=== PATIENT | male | born 1945 | race Caucasian/White ===

== ENCOUNTER 2017-03-29 10:53 | Outpatient (CLI) | payer MEDICARE, BC ==
[2017-03-29 17:28] LABS: BILIRUBIN,URINE NEGATIVE (NEGATIVE); GLUCOSE, URINE (UA) NEGATIVE (NEGATIVE); KETONES,URINE (UA) NEGATIVE (NEGATIVE); LEUKOCYTE ESTERASE, URINE NEGATIVE (NEGATIVE); NITRITE,URINE NEGATIVE (NEGATIVE); OCCULT BLOOD,URINE NEGATIVE (NEGATIVE); PH,URINE 7.5 PH (5.0-7.5); PROTEIN,URINE NEGATIVE (NEGATIVE); UROBILINOGEN,URINE 0.2 (NORMAL) E.U./dL (NORMAL)
[2017-03-29 17:38] LABS: AMORPHOUS SEDIMENT,UR Moderate /LPF; BACTERIA,URINE Rare /HPF (None Seen); CLARITY,URINE CLEAR (CLEAR); MUCUS,URINE Few Strands; RBC,URINE 0-5 /HPF (0-5); SQUAMOUS EPITHELIAL CELL,UR RARE Squamous (<= Few)
== END 2017-03-29 10:54 | disposition home or self-care (01) ==
LOC: LAB.F 10:53
PROVIDERS: ATTEND Physician Assistant Medical
DX: N39.43 Post-void dribbling (principal); Z12.5 Encounter for screening for malignant neoplasm of prostate
CPT/HCPCS: 36415; 81001; G0103; 84153; 87086

== ENCOUNTER 2017-04-02 11:23 | Outpatient (CLI) | payer MEDICARE, BC ==
[2017-04-02 18:16] LABS: PSA FREE 1.429 ng/mL (0.16-2.81)
[2017-04-02 18:17] LABS: PSA TOTAL 7.573 ng/mL (0.000-2.000)
== END 2017-04-02 11:24 | disposition home or self-care (01) ==
LOC: LAB.F 11:23
PROVIDERS: ATTEND Physician Assistant Medical
DX: R97.20 Elevated prostate specific antigen [PSA] (principal)
CPT/HCPCS: 36415; 84154

== ENCOUNTER 2017-04-12 10:36 | Outpatient (CLI) | payer MEDICARE, BC ==
[2017-04-12 19:04] LABS: ALBUMIN 4.2 g/dL (3.2-5.5); ALBUMIN/GLOBULIN RATIO 1.4 (1.0-2.2); ALKALINE PHOSPHATASE 61 IU/L (42-121); ALT ALANINE AMINOTRANSFERASE 20 IU/L (10-60); AST ASPARTATE AMINOTRANSFERASE 23 IU/L (10-42); BILIRUBIN,TOTAL 0.9 mg/dL (0.2-1.0); BUN - BLOOD UREA NITROGEN 21 mg/dL (6-20); CALCIUM 9.6 mg/dL (8.5-10.3); CARBON DIOXIDE - CO2 26 mmol/L (21-32); CHLORIDE 102 mmol/L (101-111); CHOL/HDL RATIO 3.4 (<5.0); CHOLESTEROL 235 mg/dL; CREATININE 0.9 mg/dL (0.6-1.2); GFR - MDRD 83 (>89); GLUCOSE 102 mg/dL (70-100); HDL CHOLESTEROL 69 mg/dL; LDL CHOLESTEROL,CALCULATED 152 mg/dL; LDL/HDL RATIO 2.2 (<3.6); SODIUM 138 mmol/L (135-145); TOTAL PROTEIN 7.2 g/dL (6.7-8.2); VLDL CHOLESTEROL 14 mg/dL
== END 2017-04-12 10:37 | disposition home or self-care (01) ==
LOC: LAB.F 10:36
PROVIDERS: ATTEND Physician Assistant Medical
DX: R03.0 Elevated blood-pressure reading, without diagnosis of hypertension (principal); E78.5 Hyperlipidemia, unspecified
CPT/HCPCS: 36415; 80053; 80061; 83721; 84443

== ENCOUNTER 2018-11-04 09:12 | Outpatient (CLI) | payer MEDICARE, BC ==
[2018-11-04 18:14] LABS: CHOL/HDL RATIO 2.5 (<5.0); CHOLESTEROL 195 mg/dL; HDL CHOLESTEROL 77 mg/dL
== END 2018-11-04 09:13 | disposition home or self-care (01) ==
LOC: LAB.S 09:12
PROVIDERS: ATTEND Physician Assistant Medical
DX: E78.00 Pure hypercholesterolemia, unspecified (principal); Z12.5 Encounter for screening for malignant neoplasm of prostate
CPT/HCPCS: 36415; 80061; G0103; 83721; 84153

== ENCOUNTER 2019-08-08 12:13 | Outpatient (CLI) | payer MEDICARE, BC | END 2019-08-08 12:14 | disposition home or self-care (01) | LOC: LAB.S 12:13 | PROVIDERS: ATTEND Urology | DX: R97.20 Elevated prostate specific antigen [PSA] (principal) | CPT/HCPCS: 36415; 84153 ==

== ENCOUNTER 2020-02-26 08:00 | Outpatient (CLI) | payer MEDICARE, BC | END 2020-02-26 23:59 | disposition home or self-care (01) | LOC: LAB.WCP 08:00 | PROVIDERS: ATTEND Physician Assistant | DX: R42 Dizziness and giddiness (principal) ==

== ENCOUNTER 2020-02-26 15:16 | Inpatient (IN) | payer MEDICARE, BC ==
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
[2020-02-26 16:09] LABS: BASOPHILS % (AUTO) 0.6 %; EOSINOPHILS # (AUTO) 0.2 10^3/uL (0.0-0.7); EOSINOPHILS % (AUTO) 4.5 %; HGB - HEMOGLOBIN 15.2 g/dL (14.0-18.0); LYMPHOCYTES # (AUTO) 1.7 10^3/uL (1.5-3.5); LYMPHOCYTES % (AUTO) 34.4 %; MEAN CORPUSCULAR HEMOGLOBIN 32.8 pg (27.0-31.0); MEAN CORPUSCULAR HGB CONC 34.2 g/dL (32.0-36.0); MEAN CORPUSCULAR VOLUME 95.7 fL (80.0-94.0); MEAN PLATELET VOLUME 10.2 fL (7.4-11.4); MONOCYTES # (AUTO) 0.4 10^3/uL (0.0-1.0); MONOCYTES % (AUTO) 7.6 %; NEUTROPHILS # (AUTO) 2.6 10^3/uL (1.5-6.6); NEUTROPHILS % (AUTO) 52.7 %; PLT - PLATELET COUNT 158 10^3/uL (130-450); RED BLOOD COUNT 4.64 10^6/uL (4.70-6.10); RED CELL DISTRIBUTION WIDTH 13.2 % (12.0-15.0); WHITE BLOOD COUNT 4.9 x10^3/uL (4.8-10.8)
--- NOTE | 2020-02-26 16:20 | XRAY Report ---
PROCEDURE: Chest 1 View X-Ray INDICATIONS: Chest pain TECHNIQUE: One view of the chest was acquired. COMPARISON: None FINDINGS: Surgical changes and devices: None. Lungs and pleura: No pleural effusions or pneumothorax. Lungs are clear. Mediastinum: Mediastinal contours appear normal. Heart size is normal. Bones and chest wall: No suspicious bony lesions. Overlying soft tissues appear unremarkable. IMPRESSION: No acute cardiopulmonary pathology. Reviewed by: Prabahkar Carlos MD on 02/26/2020 4:19 PM [facility] Approved by: Prabhakar Carlos MD on 02/26/2020 4:19 PM PST Station ID: [id number]
[2020-02-26 16:21] LABS: ALBUMIN 4.5 g/dL (3.2-5.5); ALBUMIN/GLOBULIN RATIO 1.3 (1.0-2.2); BILIRUBIN,TOTAL 0.8 mg/dL (0.2-1.0); CALCIUM 9.9 mg/dL (8.5-10.3); CREATININE 0.7 mg/dL (0.6-1.2)
[2020-02-26] MEDS ORDERED: ONDANSETRON 4 MG/2 ML VIAL IVP PRN (17:16)
[2020-02-26] MEDS ORDERED: SODIUM CHLORIDE FLUSH 0.9% 10 ML SYRINGE IVP PRN (17:16)
[2020-02-26 17:39] LABS: INR 1.1 (0.8-1.2); PT - PROTHROMBIN TIME 11.8 secs (9.9-12.6)
[2020-02-26] MEDS ORDERED: D5NS W/20 MEQ KCL 1,000 ML IV SCH (18:00)
--- NOTE | 2020-02-26 18:09 | PHARMACY PROGRESS NOTE ---
- Best Possible Medication History Admit Date and Time: 02/26/20 1716 Processed by: Pharmacy Medication History completed: Yes Patient Interview: Completed Secondary Source(s): Insurance records As the person ultimately responsible for medication therapy, providers are able to order a medication from an existing home medication list in [facility] via the "Reconcile Routine" prior to Confirmation of that medication by logistics support. Such practice is discouraged except when the physician, in their clinical judgment, deems that a medical need exists for a medication without regard to previous use.
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
[2020-02-26] MEDS: SODIUM CHLORIDE FLUSH 0.9% 10 ML SYRINGE IVP SCH (20:01)
[2020-02-26 20:35] LABS: C. PNEUMONIAE- RESP PCR PANEL NOT DETECTED
[2020-02-26] MEDS ORDERED: FAMOTIDINE 20 MG TABLET PO SCH (21:00)
[2020-02-27 04:18] LABS: BASOPHILS % (AUTO) 0.6 %; EOSINOPHILS # (AUTO) 0.3 10^3/uL (0.0-0.7); EOSINOPHILS % (AUTO) 4.9 %; HGB - HEMOGLOBIN 13.7 g/dL (14.0-18.0); LYMPHOCYTES # (AUTO) 1.9 10^3/uL (1.5-3.5); LYMPHOCYTES % (AUTO) 36.3 %; MEAN CORPUSCULAR HEMOGLOBIN 32.5 pg (27.0-31.0); MEAN CORPUSCULAR VOLUME 95.5 fL (80.0-94.0); MEAN PLATELET VOLUME 10.4 fL (7.4-11.4); MONOCYTES # (AUTO) 0.5 10^3/uL (0.0-1.0); MONOCYTES % (AUTO) 9.7 %; NEUTROPHILS # (AUTO) 2.5 10^3/uL (1.5-6.6); NEUTROPHILS % (AUTO) 48.5 %; PLT - PLATELET COUNT 143 10^3/uL (130-450); RED BLOOD COUNT 4.22 10^6/uL (4.70-6.10); WHITE BLOOD COUNT 5.2 x10^3/uL (4.8-10.8)
[2020-02-27 04:35] LABS: CALCIUM 9.3 mg/dL (8.5-10.3); CREATININE 0.7 mg/dL (0.6-1.2); MAGNESIUM 2.2 mg/dL (1.7-2.8); PHOSPHORUS 3.4 mg/dL (2.5-4.6)
[2020-02-27 04:40] LABS: CHOL/HDL RATIO 2.9 (<5.0); CHOLESTEROL 191 mg/dL; HDL CHOLESTEROL 65 mg/dL; LDL CHOLESTEROL,CALCULATED 113 mg/dL; LDL/HDL RATIO 1.7 (<3.6); VLDL CHOLESTEROL 13 mg/dL
[2020-02-27] MEDS ORDERED: ATROPINE 0.4 MG/ML VIAL IVP ONE ×4 (06:05→07:06)
[2020-02-27] MEDS ORDERED: ATROPINE ABBOJECT 1 MG/10 ML SYRINGE IVP ONE ×2 (06:14→06:34)
[2020-02-27] MEDS: SODIUM CHLORIDE FLUSH 0.9% 10 ML SYRINGE IVP SCH (08:36)
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
[2020-02-27 13:54] VITALS: BP 139/97
== END 2020-02-27 14:50 | disposition short-term general hospital (02) | DRG 310 ==
LOC: ED 15:16 → ICU 17:16
PROVIDERS: ADMIT Internal Medicine; ATTEND Internal Medicine
DX: I48.92 Unspecified atrial flutter (principal); I44.39 Other atrioventricular block; I08.3 Combined rheumatic disorders of mitral, aortic and tricuspid valves; G25.81 Restless legs syndrome; Z91.19 Patient's noncompliance with other medical treatment and regimen; R55 Syncope and collapse; Z79.899 Other long term (current) drug therapy
CPT/HCPCS: 36415; 71045; 80048; 80053; 80061; 83690; 83735; 83880; 84100; 84443; 84484; 85025; 85610; 87150; 87631; 93005; 93306; 99284; 99285; A9270; 0202U; 83721

== ENCOUNTER 2020-02-27 14:54 | Outpatient (CLI) | payer MEDICARE, BC | END 2020-02-27 14:55 | disposition short-term general hospital (02) | LOC: EMS 14:54 | PROVIDERS: ATTEND Surgery | DX: I44.39 Other atrioventricular block (principal) | CPT/HCPCS: A0425; A0426 ==

== ENCOUNTER 2020-03-08 09:40 | Outpatient (CLI) | payer MEDICARE, BC ==
[2020-03-08 14:07] LABS: BASOPHILS % (AUTO) 0.6 %; EOSINOPHILS # (AUTO) 0.3 10^3/uL (0.0-0.7); EOSINOPHILS % (AUTO) 5.3 %; LYMPHOCYTES # (AUTO) 1.6 10^3/uL (1.5-3.5); LYMPHOCYTES % (AUTO) 30.4 %; MEAN CORPUSCULAR HEMOGLOBIN 32.2 pg (27.0-31.0); MEAN CORPUSCULAR HGB CONC 34.1 g/dL (32.0-36.0); MEAN CORPUSCULAR VOLUME 94.3 fL (80.0-94.0); MEAN PLATELET VOLUME 10.9 fL (7.4-11.4); MONOCYTES # (AUTO) 0.6 10^3/uL (0.0-1.0); MONOCYTES % (AUTO) 10.7 %; NEUTROPHILS # (AUTO) 2.8 10^3/uL (1.5-6.6); NEUTROPHILS % (AUTO) 52.8 %; PLT - PLATELET COUNT 155 10^3/uL (130-450); RED BLOOD COUNT 4.35 10^6/uL (4.70-6.10); RED CELL DISTRIBUTION WIDTH 12.8 % (12.0-15.0); WHITE BLOOD COUNT 5.3 x10^3/uL (4.8-10.8)
[2020-03-08 14:24] LABS: ALBUMIN 3.8 g/dL (3.2-5.5); ALBUMIN/GLOBULIN RATIO 1.2 (1.0-2.2); ALKALINE PHOSPHATASE 73 IU/L (42-121); ALT ALANINE AMINOTRANSFERASE 26 IU/L (10-60); AST ASPARTATE AMINOTRANSFERASE 20 IU/L (10-42); BILIRUBIN,TOTAL 0.9 mg/dL (0.2-1.0); BUN - BLOOD UREA NITROGEN 19 mg/dL (6-20); CALCIUM 9.1 mg/dL (8.5-10.3); CARBON DIOXIDE - CO2 26 mmol/L (21-32); CHLORIDE 105 mmol/L (101-111); CHOL/HDL RATIO 3.5 (<5.0); CHOLESTEROL 198 mg/dL; CREATININE 0.7 mg/dL (0.6-1.2); GLUCOSE 99 mg/dL (70-100); HDL CHOLESTEROL 57 mg/dL; LDL CHOLESTEROL,CALCULATED 128 mg/dL; LDL/HDL RATIO 2.2 (<3.6); SODIUM 138 mmol/L (135-145); VLDL CHOLESTEROL 13 mg/dL
== END 2020-03-08 09:41 | disposition home or self-care (01) ==
LOC: LAB.S 09:40
PROVIDERS: ATTEND Internal Medicine
DX: R03.0 Elevated blood-pressure reading, without diagnosis of hypertension (principal); E78.5 Hyperlipidemia, unspecified; G25.81 Restless legs syndrome
CPT/HCPCS: 36415; 80053; 80061; 82728; 83721; 85025

== ENCOUNTER 2020-03-25 10:59 | Outpatient (CLI) | payer MEDICARE, BC | END 2020-03-25 11:00 | disposition critical access hospital (66) | LOC: EMS 10:59 | PROVIDERS: ATTEND Surgery | DX: R10.9 Unspecified abdominal pain (principal) | CPT/HCPCS: A0425; A0427 ==

== ENCOUNTER 2020-03-25 11:36 | Inpatient (IN) | payer MEDICARE, BC ==
[2020-03-25 12:06] LABS: BASOPHILS % (AUTO) 0.2 %; EOSINOPHILS % (AUTO) 0.2 %; HGB - HEMOGLOBIN 13.8 g/dL (14.0-18.0); LYMPHOCYTES # (AUTO) 0.8 10^3/uL (1.5-3.5); LYMPHOCYTES % (AUTO) 8.8 %; MEAN CORPUSCULAR HEMOGLOBIN 32.3 pg (27.0-31.0); MEAN CORPUSCULAR HGB CONC 34.4 g/dL (32.0-36.0); MEAN CORPUSCULAR VOLUME 93.9 fL (80.0-94.0); MEAN PLATELET VOLUME 10.6 fL (7.4-11.4); MONOCYTES # (AUTO) 0.3 10^3/uL (0.0-1.0); MONOCYTES % (AUTO) 3.4 %; NEUTROPHILS # (AUTO) 7.7 10^3/uL (1.5-6.6); NEUTROPHILS % (AUTO) 87.1 %; PLT - PLATELET COUNT 132 10^3/uL (130-450); RED BLOOD COUNT 4.27 10^6/uL (4.70-6.10); RED CELL DISTRIBUTION WIDTH 12.8 % (12.0-15.0); WHITE BLOOD COUNT 8.8 x10^3/uL (4.8-10.8)
[2020-03-25] MEDS ORDERED: ONDANSETRON 4 MG/2 ML VIAL IVP STA (12:16)
[2020-03-25] MEDS ORDERED: HYDROmorphone 1 MG/ML CARPUJECT IVP STA ×3 (12:16→15:16)
[2020-03-25 12:19] LABS: ALBUMIN 3.9 g/dL (3.2-5.5); ALBUMIN/GLOBULIN RATIO 1.3 (1.0-2.2); CALCIUM 9.3 mg/dL (8.5-10.3); CREATININE 0.7 mg/dL (0.6-1.2); TOTAL PROTEIN 6.8 g/dL (6.7-8.2)
--- NOTE | 2020-03-25 12:40 | ED Physician Documentation ---
PD HPI ABD PAIN - Stated complaint Stated Complaint: ABD PX - Chief complaint Chief Complaint: Abd Pain - History obtained from History obtained from: Patient - History of Present Illness Timing - onset: How many hours ago (9) Timing - duration: Hours (9) Timing - details: Abrupt onset Pain level max: 10 Pain level now: 6 Quality: Aching, Pain Location: All over / everywhere Associated symptoms: No: Fever, Hematemesis, Diarrhea, Constipation, Melena, Hematochezia, Dysuria, Hematuria - Additional information Additional information: Patient is a 75-year-old male who presents to the emergency department stating he had sudden onset of epigastric abdominal pain last night. Vomiting today. Nothing makes it better or worse. Patient denies any abdominal surgeries in the past. He states he had a colonoscopy about 20 years ago. Denies any drug use. Does not smoke. He recently had a pacemaker placed. No diarrhea. No blood in the stool. Review of Systems Ten Systems: 10 systems reviewed and negative Constitutional: denies: Fever, Chills Cardiac: denies: Chest pain / pressure Respiratory: denies: Cough GI: reports: Nausea, Vomiting. denies: Diarrhea : denies: Dysuria Skin: denies: Rash Musculoskeletal: denies: Neck pain, Back pain Neurologic: denies: Headache PD PAST MEDICAL HISTORY - Past Medical History Cardiovascular: None Respiratory: Sleep apnea Neuro: None Endocrine/Autoimmune: None GI: None : Frequency Psych: None Musculoskeletal: Other Derm: None - Past Surgical History Past Surgical History: Yes Cardiovascular: Pacemaker - Present Medications Home Medications: Ambulatory Orders Medication Instructions Recorded Confirmed Gabapentin [Neurontin] 100 - 200 mg PO QPM 02/26/20 03/25/20 Apixaban [Eliquis] 5 mg PO DAILY 03/25/20 03/25/20 Losartan Potassium 25 mg PO DAILY 03/25/20 03/25/20 Metoprolol Tartrate [Lopressor] 25 mg PO DAILY 03/25/20 03/25/20 Spironolactone [Aldactone] 25 mg PO DAILY 03/25/20 03/25/20 - Allergies Allergies/Adverse Reactions: Allergies Allergy/AdvReac Type Severity Reaction Status Date / Time diazepam [From Valium] Allergy Unknown Verified 03/25/20 11:43 Sulfa (Sulfonamide Allergy Unknown Verified 03/25/20 11:43 Antibiotics) - Social History Does the pt smoke?: No Smoking Status: Never smoker Does the pt drink ETOH?: No Does the pt have substance abuse?: No - Immunizations Immunizations are current?: Yes PD ED PE NORMAL - Vitals Vital signs reviewed: Yes - General General: Alert and oriented X 3, No acute distress - HEENT HEENT: Moist mucous membranes - Neck Neck: Supple, no meningeal sign - Cardiac Cardiac: RRR - Respiratory Respiratory: No respiratory distress, Clear bilaterally - Abdomen Abdomen: Soft, Non tender, Non distended, Other (Tender to palpation epigastric without peritoneal signs) - Back Back: No CVA TTP - Derm Derm: Warm and dry - Neuro Neuro: Alert and oriented X 3 - Psych Psych: Normal mood, Normal affect Results - Vitals Vitals: Vital Signs - 24 hr 03/25/20 03/25/20 11:46 13:49 Temperature 36.5 C Heart Rate 67 68 Respiratory 18 17 Rate Blood Pressure 135/71 H 135/62 H O2 Saturation 100 100 Oxygen O2 Source Room air - EKG (time done) 1137 Rate: Rate (enter#) (65) Rhythm: Paced - Labs Labs: Laboratory Tests 03/25/20 03/25/20 03/25/20 11:59 11:59 13:24 WBC 8.8 RBC 4.27 L Hgb 13.8 L Hct 40.1 L MCV 93.9 MCH 32.3 H MCHC 34.4 RDW 12.8 Plt Count 132 MPV 10.6 Neut # (Auto) 7.7 H Lymph # (Auto) 0.8 L [place] # (Auto) 0.3 Eos # (Auto) 0.0 Baso # (Auto) 0.0 Absolute Nucleated RBC 0.00 Nucleated RBC % 0.0 Sodium 137 Potassium 5.1 H Chloride 104 Carbon Dioxide 27 Anion Gap 6.0 BUN 25 H Creatinine 0.7 Estimated GFR (MDRD) 110 Glucose 145 H Lactic Acid 1.3 Calcium 9.3 Total Bilirubin 1.0 AST 26 ALT 28 Alkaline Phosphatase 70 Total Protein 6.8 Albumin 3.9 Globulin 2.9 Albumin/Globulin Ratio 1.3 Lipase 23 Urine Color Urine Clarity Urine pH Ur Specific [place] Urine Protein Urine Glucose (UA) Urine Ketones Urine Occult Blood Urine Nitrite Urine Bilirubin Urine Urobilinogen Ur Leukocyte Esterase Ur Microscopic Review Urine Culture Comments 03/25/20 13:27 WBC RBC Hgb Hct MCV MCH MCHC RDW Plt Count MPV Neut # (Auto) Lymph # (Auto) [place] # (Auto) Eos # (Auto) Baso # (Auto) Absolute Nucleated RBC Nucleated RBC % Sodium Potassium Chloride Carbon Dioxide Anion Gap BUN Creatinine Estimated GFR (MDRD) Glucose Lactic Acid Calcium Total Bilirubin AST ALT Alkaline Phosphatase Total Protein Albumin Globulin Albumin/Globulin Ratio Lipase Urine Color YELLOW Urine Clarity CLEAR Urine pH 6.0 Ur Specific [place] 1.010 Urine Protein NEGATIVE Urine Glucose (UA) NEGATIVE Urine Ketones TRACE Urine Occult Blood NEGATIVE Urine Nitrite NEGATIVE Urine Bilirubin NEGATIVE Urine Urobilinogen 0.2 (NORMAL) Ur Leukocyte Esterase NEGATIVE Ur Microscopic Review NOT INDICATED Urine Culture Comments NOT INDICATED - Rads (name of study) CT abdomen and pelvis Radiology: Prelim report reviewed, EMP read contemporaneously, See rad report PD MEDICAL DECISION MAKING - ED course Complexity details: reviewed results, re-evaluated patient, considered dif ferential, d/w patient, d/w web consultant ED course: 75-year-old male with a small bowel obstruction on CT scan. Pain and vomiting controlled. NG tube placed. No history of abdominal surgeries. Consulted surgery, Dr. Kelsey who will follow the patient as an inpatient. Also consulted the hospitalist, Dr. Alvarez, who accepts. This document was made in part using voice recognition software. While efforts are made to proofread this document, sound alike and grammatical errors may occur. Departure - Departure Disposition: [facility] Clinical Impression: Small bowel obstruction Condition: Stable Discharge Date/Time: 03/25/20 15:22
[2020-03-25] MEDS ORDERED: IOVERSOL 320 100 ML VIAL IVP ONE ×2 (12:42→13:15)
[2020-03-25] MEDS ORDERED: SODIUM CHLORIDE 0.9% 1,000 ML IV STA (13:03)
--- NOTE | 2020-03-25 13:34 | CT Report ---
PROCEDURE: Abdomen/Pelvis W INDICATIONS: diffuse abd pain, vomiting CONTRAST: IV CONTRAST: Optiray 320 ml: 100 PO CONTRAST: *NO PO CONTRAST TECHNIQUE: After the administration of IV contrast, 5 mm thick sections acquired from the diaphragms to the symp hysis. 5 mm thick coronal and sagittal reformats were acquired. For radiation dose reduction, the f ollowing was used: automated exposure control, adjustment of mA and/or kV according to patient size. COMPARISON: None. FINDINGS: Image quality: Excellent. ABDOMEN: Lung bases: Lung bases are clear. Heart size is enlarged, pacemaker leads are seen in the region of right atrium and right ventricle. Solid organs: Liver and spleen are normal in size and enhancement. Gallbladder is within normal wheeler its. Biliary system is non dilated. Pancreas enhances normally. No adrenal nodules. Kidneys demon strate normal size and enhancement, without hydronephrosis. Small right renal cortical cyst is seen. Peritoneum and bowel: There is small amount of ascites fluid is seen in abdomen and pelvis. No gross peritoneal free air. Fluid distended small bowel loops are noted predominantly in left side of abdome n with adjacent mesenteric fat stranding and measures up to 3 cm in diameter. Colon loops show normal caliber and wall mass. Appendix is not definitively identified. No secondary signs of acute appendic itis is seen in right lower quadrant abdomen. Nodes and vessels: No retroperitoneal or mesenteric adenopathy by size criteria. Aorta and inferior vena cava are normal in size. Miscellaneous: Small umbilical hernia is seen containing ascites fluid. PELVIS: Genitourinary: Bladder wall thickness is normal. Miscellaneous: No inguinal hernias or adenopathy. Bones: No suspicious bony lesions. No vertebral body compression fractures. IMPRESSION: 1. Finding is concerning for moderate to high-grade small bowel obstruction with with fluid distended bowel loops seen predominantly in left side of abdomen and lower abdomen/pelvis. Coronal transition is not definitively identified, likely involving small bowel loop in right lower quadrant abdomen. Th ere is small amount of ascites fluid in abdomen and pelvis. No gross free air. 2. No evidence of acute appendicitis. No abscess collection. Small umbilical hernia containing small amount of ascites fluid. 3. Right renal cyst. No renal stone or hydronephrosis. Reviewed by: Prabhakar Carlos MD on 03/25/2020 1:33 PM PST Approved by: Prabhakar Carlos MD on 03/25/2020 1:33 PM PST Station ID: [id number]
[2020-03-25] MEDS ORDERED: MORPHINE 2 MG/ML CARPUJECT IVP PRN (13:52)
[2020-03-25 13:54] LABS: BILIRUBIN,URINE NEGATIVE (NEGATIVE); GLUCOSE, URINE (UA) NEGATIVE (NEGATIVE); KETONES,URINE (UA) TRACE mg/dL (NEGATIVE); LEUKOCYTE ESTERASE, URINE NEGATIVE (NEGATIVE); NITRITE,URINE NEGATIVE (NEGATIVE); OCCULT BLOOD,URINE NEGATIVE (NEGATIVE); PROTEIN,URINE NEGATIVE (NEGATIVE); UROBILINOGEN,URINE 0.2 (NORMAL) E.U./dL (NORMAL)
[2020-03-25] MEDS ORDERED: LIDOCAINE TOPICAL 4% 50 ML BOTTLE MM STA (13:55)
[2020-03-25 13:57] LABS: CLARITY,URINE CLEAR (CLEAR)
--- NOTE | 2020-03-25 13:59 | HISTORY & PHYSICAL EXAMINATION ---
History - Past Medical History Cardiovascular: reports: None Respiratory: reports: Sleep apnea Neuro: reports: None Endocrine/Autoimmune: reports: None GI: reports: None : reports: Frequency Psych: reports: None Musculoskeletal: reports: Other Derm: reports: None - Past Surgical History Cardiovascular: reports: Pacemaker Meds/Allgy - Home Medications Home Medications: Ambulatory Orders Medication Instructions Recorded Confirmed Gabapentin [Neurontin] 100 - 200 mg PO QPM 02/26/20 03/25/20 Apixaban [Eliquis] 5 mg PO DAILY 03/25/20 03/25/20 Losartan Potassium 25 mg PO DAILY 03/25/20 03/25/20 Metoprolol Tartrate [Lopressor] 25 mg PO DAILY 03/25/20 03/25/20 Spironolactone [Aldactone] 25 mg PO DAILY 03/25/20 03/25/20 - Allergies Allergies/Adverse Reactions: Allergies Allergy/AdvReac Type Severity Reaction Status Date / Time diazepam [From Valium] Allergy Unknown Verified 03/25/20 11:43 Sulfa (Sulfonamide Allergy Unknown Verified 03/25/20 11:43 Antibiotics) Exam - Vital Signs Vital Signs: Vital Signs x48h Temp Pulse Resp BP Pulse Ox 03/25/20 13:49 68 17 135/62 H 100 03/25/20 11:46 36.5 C 67 18 135/71 H 100 Conclusion/Plan - Lab Results Fish Bones: 03/25/20 11:59 03/25/20 11:59
--- NOTE | 2020-03-25 14:50 | XRAY Report ---
PROCEDURE: Chest for Line Placement INDICATIONS: NG tube placement TECHNIQUE: One view of the chest was acquired. COMPARISON: 02/26/2020 FINDINGS: Surgical changes and devices: Dual-lead cardiac pacer is in place in the interval since prior examina tion. NG tube is noted with tip projecting over the proximal stomach and port in the distal esophagus . Lungs and pleura: No pleural effusions or pneumothorax. Lungs are clear. Mediastinum: Mediastinal contours appear normal. Heart size is normal. Bones and chest wall: No suspicious bony lesions. Overlying soft tissues appear unremarkable. IMPRESSION: NG tube across the GE junction with tip in the proximal stomach and side-port in the distal esophagus . NG tube should be advanced several centimeters. Reviewed by: Shelly Costa MD, PhD on 03/25/2020 1:48 PM [facility] Approved by: Shelly Costa MD, PhD on 03/25/2020 1:48 PM [facility] Station ID: [id number]
--- NOTE | 2020-03-25 16:09 | CONSULTATION NOTE ---
Referring Provider Name of Referring Provider:: Stan Alvarez Consult Date: 03/25/20 Chief Complaint - Chief Complaint Chief Complaint: Abdominal pain associated with nausea and vomiting History of Present Illness - Admitted From Admitted From:: ED - History Obtained From Records Reviewed: Providers notes and images History obtained from: Patient and providers Exam Limitations: None - History of Present Illness HPI Comment/Other: Patient is a 75-year-old male who presents to the emergency department stating he had sudden onset of epigastric abdominal pain last night. Vomiting today. Nothing makes it better or worse. Patient denies any abdominal surgeries in the past. He has never had a similar episode and denies any sick contacts. He states he had a colonoscopy about 20 years ago. Denies any drug use. Does not smoke. He recently had a pacemaker placed. No diarrhea. No blood in the stool. He denies any chest pain at this time. He reports he is "miserable" and cannot get comfortable. NGT was placed and is working but has not improved his discomfort. He describes the pain as "severe" and reports it is all over his abdomen but worst in the upper mid abdomen History - Past Medical History Cardiovascular: reports: None Respiratory: reports: Sleep apnea Neuro: reports: None Endocrine/Autoimmune: reports: None GI: reports: None : reports: Frequency Psych: reports: None Musculoskeletal: reports: Other Derm: reports: None - Past Surgical History General: reports: Colonoscopy (approximately 20 years ago) Cardiovascular: reports: Pacemaker Meds/Allgy - Home Medications Home Medications: Ambulatory Orders Medication Instructions Recorded Confirmed Gabapentin [Neurontin] 100 - 200 mg PO QPM 02/26/20 03/25/20 Apixaban [Eliquis] 5 mg PO DAILY 03/25/20 03/25/20 Losartan Potassium 25 mg PO DAILY 03/25/20 03/25/20 Metoprolol Tartrate [Lopressor] 25 mg PO DAILY 03/25/20 03/25/20 Spironolactone [Aldactone] 25 mg PO DAILY 03/25/20 03/25/20 - Allergies Allergies/Adverse Reactions: Allergies Allergy/AdvReac Type Severity Reaction Status Date / Time diazepam [From Valium] Allergy Unknown Verified 03/25/20 11:43 Sulfa (Sulfonamide Allergy Unknown Verified 03/25/20 11:43 Antibiotics) Review of Systems - Constitutional Constitutional: reports: Poor appetite - Eyes Eyes: denies: Pain, Irritation, Blurred vision - Ears, Nose & Throat Ears, Nose & Throat: denies: Tinnitus, Vertigo - Cardiovascular Cariovascular: denies: Irregular heart rate, Palpitations, Chest pain, Lightheadedness - Respiratory Respiratory: denies: Cough, Sputum production, Wheezing, Orthopnea - Gastrointestinal Gastrointestinal: reports: Abdominal pain, Nausea, Vomiting, Poor appetite. denies: Abdominal distention, Constipation, Diarrhea, Change in bowel habits, Rectal bleeding, Black stools, Bloody stools, Coffee grounds emesis, Reflux/heartburn, Bloating - Genitourinary Genitourinary: reports: Frequency. denies: Dysuria - Musculoskeletal Musculoskeletal: reports: Stiffness, Joint pain - Integumentary Integumentary: denies: Rash, Pruritis - Neurological Neurological: denies: General weakness, Focal weakness Exam - Vital Signs Reviewed Vital Signs: Yes Vital Signs: Vital Signs x48h Temp Pulse Pulse Resp BP BP Pulse Ox 03/25/20 15:58 36.5 C 91 18 159/63 H 95 03/25/20 14:40 36.5 C 71 19 148/91 H 100 03/25/20 13:49 68 17 135/62 H 100 03/25/20 11:46 36.5 C 67 18 135/71 H 100 - Physical Exam General Appearance: positive: Moderate distress, Anxious Eyes Bilateral: positive: Normal inspection, PERRL, EOMI, No lid inflammation, Conjunctivae nml ENT: positive: ENT inspection nml, Pharynx nml, No signs of dehydration Neck: positive: Nml inspection, Thyroid nml, No JVD Respiratory: positive: Chest non-tender, No respiratory distress, Breath sounds nml Cardiovascular: positive: Regular rate & rhythm, No murmur Peripheral Pulses: positive: 0 Abdomen: positive: Nml bowel sounds, No distention, Tenderness, Guarding, Rebound Back: negative: CVA tenderness (R), CVA tenderness (L) Skin: positive: Color nml, No rash Extremities: positive: Non-tender Neurologic/Psychiatric: positive: Oriented x3 Conclusion and Plan - Lab Results Laboratory Results 03/25/20 13:27: Urine Color YELLOW, Urine Clarity CLEAR, Urine pH 6.0, Ur Specific [place] 1.010, Urine Protein NEGATIVE, Urine Glucose (UA) NEGATIVE, Urine Ketones TRACE, Urine Occult Blood NEGATIVE, Urine Nitrite NEGATIVE, Urine Bilirubin NEGATIVE, Urine Urobilinogen 0.2 (NORMAL), Ur Leukocyte Esterase NEGATIVE, Ur Microscopic Review NOT INDICATED, Urine Culture Comments NOT INDICATED 03/25/20 13:24: Lactic Acid 1.3 03/25/20 11:59: Sodium 137, Potassium 5.1 H, Chloride 104, Carbon Dioxide 27, Anion Gap 6.0, BUN 25 H, Creatinine 0.7, Estimated GFR (MDRD) 110, Glucose 145 H, Calcium 9.3, Total Bilirubin 1.0, AST 26, ALT 28, Alkaline Phosphatase 70, Total Protein 6.8, Albumin 3.9, Globulin 2.9, Albumin/Globulin Ratio 1.3, Lipase 23 03/25/20 11:59: WBC 8.8, RBC 4.27 L, Hgb 13.8 L, Hct 40.1 L, MCV 93.9, MCH 32.3 H, MCHC 34.4, RDW 12.8, Plt Count 132, MPV 10.6, Neut # (Auto) 7.7 H, Lymph # (Auto) 0.8 L, [place] # (Auto) 0.3, Eos # (Auto) 0.0, Baso # (Auto) 0.0, Absolute Nucleated RBC 0.00, Nucleated RBC % 0.0 - Diagnosis Diagnosis: IMPRESSION: 1. Finding is concerning for moderate to high-grade small bowel obstruction with with fluid. distended bowel loops seen predominantly in left side of abdomen and lower abdomen/pelvis. Coronal. transition is not definitively identified, likely involving small bowel loop in right lower quadrant. abdomen. There is small amount of ascites fluid in abdomen and pelvis. No gross free air. 2. No evidence of acute appendicitis. No abscess collection. Small umbilical hernia containing. small amount of ascites fluid. 3. Right renal cyst. No renal stone or hydronephrosis. Reviewed by: Prabhakar Carlos MD on 03/25/2020 1:33 PM PST. Approved by: Prabhakar Carlos MD on 03/25/2020 1:33 PM PST - Plan Plan: My initial plan was to treat this conservatively with NGT decompression and wait. The patient's level of discomfort is concerning. He is unable to sit still and has not been relieved with any measures so far including narcotic pain medications. I have recommended we proceed to the OR for Laparoscopy with indicated procedures. He understands this may mean bowel resection and could require and open procedure. We have discussed the risks and benefits of the procedure and the patient has expressed his willingness to complete it.
--- NOTE | 2020-03-25 17:07 | ANESTHESIA ---
Pre-Anesthesia VS, & Labs - Diagnosis Diagnosis IMPRESSION: 1. Finding is concerning for moderate to high- grade small bowel obstruction with with fluid distended bowel loops seen predominantly in left side of abdomen and lower abdomen/pelvis. Coronal transition is not definitively identified, likely involving small bowel loop in right lower quadrant abdomen. There is small amount of ascites fluid in abdomen and pelvis. No gross free air. 2. No evidence of acute appendicitis. No abscess collection. Small umbilical hernia containing small amount of ascites fluid. 3. Right renal cyst. No renal stone or hydronephrosis. Reviewed by: Prabhakar Carlos MD on 03/25/2020 1:33 PM PST Approved by: Prabhakar Carlos MD on 03/25/2020 1:33 PM PST - Procedure Laparotomy, relief of SBO Vital Signs: Temp Pulse Resp BP Pulse Ox 36.5 C 91 8 L 159/63 H 95 03/25/20 15:58 03/25/20 15:58 03/25/20 15:58 03/25/20 15:58 03/25/20 15:58 Height: 6 ft Weight (kg): 70.307 kg Body Mass Index: 20.9 BMI Classification: Healthy weight - NPO >8 hours - Lab Results Current Lab Results: Laboratory Tests 03/25/20 13:24: Lactic Acid 1.3 03/25/20 11:59: Sodium 137, Potassium 5.1 H, Chloride 104, Carbon Dioxide 27, Anion Gap 6.0, BUN 25 H, Creatinine 0.7, Estimated GFR (MDRD) 110, Glucose 145 H , Calcium 9.3, Total Bilirubin 1.0, AST 26, ALT 28, Alkaline Phosphatase 70, Total Protein 6.8, Albumin 3.9, Globulin 2.9, Albumin/Globulin Ratio 1.3, Lipase 23 03/25/20 11:59: WBC 8.8, RBC 4.27 L, Hgb 13.8 L, Hct 40.1 L, MCV 93.9, MCH 32.3 H, MCHC 34.4, RDW 12.8, Plt Count 132, MPV 10.6, Neut # (Auto) 7.7 H, Lymph # (Auto) 0.8 L, [place] # (Auto) 0.3, Eos # (Auto) 0.0, Baso # (Auto) 0.0, Absolute Nucleated RBC 0.00, Nucleated RBC % 0.0 Fish Bones: 03/25/20 11:59 03/25/20 11:59 Home Medications and Allergies Home Medications: Ambulatory Orders Apixaban [Eliquis] 5 mg PO BID 03/25/20 Losartan Potassium 25 mg PO DAILY 03/25/20 Metoprolol Succinate [Toprol Xl] 50 mg PO DAILY 03/25/20 Spironolactone [Aldactone] 25 mg PO DAILY 03/25/20 Active Medications Hydromorphone HCl (Hydromorphone 1 Mg/Ml Carpuject) 1 mg IVP Q3HR PRN PRN Reason: PAIN >8 Sodium Chloride (Normal Saline 0.9%) 1,000 mls @ 100 mls/hr IV .Q10H GILDA Ondansetron HCl (Ondansetron 4 Mg/2 Ml Vial) 4 mg IVP Q6HR PRN PRN Reason: Nausea / Vomiting Pantoprazole Sodium (Pantoprazole 40 Mg Vial) 40 mg IVP QDAC GILDA Sodium Chloride (Sodium Chloride Flush 0.9% 10 Ml Syringe) 10 ml IVP PRN PRN PRN Reason: NEEDED PER PROVIDER ORDERS Sodium Chloride (Sodium Chloride Flush 0.9% 10 Ml Syringe) 10 ml IVP 0100,0900,1700 GILDA Gabapentin [Neurontin] 100 - 200 mg PO QPM 02/26/20 Apixaban [Eliquis] 5 mg PO BID 03/25/20 Losartan Potassium 25 mg PO DAILY 03/25/20 Metoprolol Succinate [Toprol Xl] 50 mg PO DAILY 03/25/20 Spironolactone [Aldactone] 25 mg PO DAILY 03/25/20 Allergies/Adverse Reactions: Allergies Allergy/AdvReac Type Severity Reaction Status Date / Time diazepam [From Valium] Allergy Unknown Verified 03/25/20 11:43 Sulfa (Sulfonamide Allergy Unknown Verified 03/25/20 11:43 Antibiotics) Anes History & Medical History - Anesthetic History Anesthesia Complications: reports: No previous complications - Medical History Cardiovascular: reports: None Pulmonary: reports: Sleep apnea Gastrointestinal: reports: None Urinary: reports: Frequency Neuro: reports: None Musculoskeletal: reports: Other Endocrine/Autoimmune: reports: None Blood Disorders: reports: None Skin: reports: None Smoking Status: Never smoker History of Cancer?: No - Surgical History General: Colonoscopy (approximately 20 years ago) Cardiothoracic: Pacemaker Exam General: Alert, Moderate distress (abd pain) Dental: WNL Mouth Opening: Greater than 4 Fingerbreadths Mallampati classification: II Respiratory: Lungs clear Cardiovascular: Regular rate Mental/Cognitive Status: Alert/Oriented X3 Plan Anesthesia Type: General Consent for Procedure(s) Verified and Reviewed: Yes Code Status: Attempt Resuscitation ASA classification: 2-Mild systemic disease Is this case an emergency?: Yes
[2020-03-25] MEDS ORDERED: BUPIVACAINE 0.5% PF 30 ML VIAL INFIL ONE ×2 (17:10→18:50)
[2020-03-25] MEDS ORDERED: HYDROmorphone 1 MG/ML CARPUJECT ONE (17:12)
[2020-03-25] MEDS ORDERED: LIDOCAINE 2%-EPI 1:100000 20 ML MDV ONE (17:14)
[2020-03-25] MEDS ORDERED: BUPIVACAINE 0.5% PF 30 ML VIAL ONE (17:14)
[2020-03-25] MEDS ORDERED: ROCURONIUM 50 MG/5 ML VIAL ONE ×2 (17:25→18:30)
[2020-03-25] MEDS ORDERED: LIDOCAINE-MPF 2% 5 ML VIAL ONE (17:25)
[2020-03-25] MEDS ORDERED: PROPOFOL 200 MG/20 ML VIAL IVP ONE (17:25)
[2020-03-25 17:35] LABS: C. PNEUMONIAE- RESP PCR PANEL NOT DETECTED
[2020-03-25] MEDS ORDERED: LIDOCAINE 2%-EPI 1:100000 20 ML MDV SUBQ ONE ×2 (17:38→18:50)
[2020-03-25] MEDS ORDERED: ATROPINE ABBOJECT 1 MG/10 ML SYRINGE IVP PRN (17:56)
[2020-03-25] MEDS ORDERED: PHENYLEPHRINE 10 MG/ML VIAL ONE (17:56)
[2020-03-25] MEDS ORDERED: fentaNYL 100 MCG/2 ML VIAL IVP PRN (17:56)
[2020-03-25] MEDS ORDERED: ONDANSETRON 4 MG/2 ML VIAL IVP PRN (17:56)
[2020-03-25] MEDS ORDERED: METOCLOPRAMIDE 10 MG/2 ML VIAL IVP PRN (17:56)
[2020-03-25] MEDS ORDERED: ePHEDrine 50 MG/ML VIAL IVP PRN (17:56)
[2020-03-25] MEDS ORDERED: NALOXONE 0.4 MG/ML VIAL IVP PRN (17:56)
[2020-03-25] MEDS ORDERED: HYDROmorphone 0.5 MG/0.5 ML SYRINGE IVP PRN (17:56)
[2020-03-25] MEDS ORDERED: LACTATED RINGERS 1,000 ML IV SCH (18:00)
[2020-03-25] MEDS ORDERED: metroNIDAZOLE 500 MG/100 ML 500 MG/100 ML BAG ONE (18:14)
[2020-03-25] MEDS ORDERED: SUGAMMADEX 200 MG/2 ML VIAL IVP ONE (19:27)
[2020-03-25] MEDS ORDERED: LACTATED RINGERS 100 ML IV ONE (19:43)
--- NOTE | 2020-03-25 20:14 | OPERATIVE REPORT ---
Operative Report - General Admit Date: 03/25/20 Procedure Date: 03/25/20 Planned Procedure: Laparoscopy with correction of small bowel obstruction and indicated procedures Pre-Op Diagnosis: Small bowel obstruction Procedure Performed: Laparoscopy, converted to laparotomy with small bowel resection, primary ilio ileostomy, lysis of adhesions, appendectomy and right subclavian central line placement Post Op Diagnosis: Internal hernia with frankly hemorrhagic and necrotic ileum - Procedure Note Primary Surgeon: Low Anesthesia Provider: SIN Hilliard Anesthesia Technique: General ET tube, Local, Regional block Pathology: Portion of hemorrhagic ileum to pathology in formalin IV Fluids (mL): 2,000 Estimated Blood Loss (mL): 150 Indications: Small bowel obstruction with pain out of proportion to exam Findings: Hemorrhagic and frankly necrotic proximal ileum. Internal omental hernia containing the above referenced bowel segment. Left subclavian central line in good position. Complications: None apparent. - Other Other Information/Narrative: After obtaining informed consent, the patient is brought to the operating room and placed in the supine position on the operating table. Following successful induction of general endotracheal anesthesia, appropriate padding of all bony prominences, and placement of appropriate monitors, the abdomen was prepped and draped in the standard surgical fashion. A timeout was held per scope protocol. All elements of the surgical safety checklist were followed before, during, and after the procedure. We began the procedure by infiltrating a mixture of local anesthetics inferior to the umbilicus. An incision was created here and carried down through the skin and subcutaneous tissue to reveal the fascia below. 2-0 Vicryl retention sutures were placed on either side of the midline and the abdomen was entered under direct vision using a 15 blade scalpel. A 10 mm blunt Torre balloon trocar was placed in the abdominal cavity and it was insufflated to 15 mmHg pressure. It was notable that upon entering the abdominal cavity bloody fluid was visualized including some clots. The camera was placed in the abdominal cavity and we immediately immediately visualized a large amount of bloody fluid and clots within the abdominal cavity spread throughout all portions of it we could see a Hemorrhagic mass in the Right lower quadrant. A 5 mm trocar was placed under direct vision in the right upper quadrant. This allowed manipulation of the bowel and revealed hemorrhagic and frankly necrotic small bowel.At this point I elected to conclude the laparoscopic portion of the procedure. All trochars were removed and instruments were removed from the table. We proceeded with open laparotomy.An incision was created in the midline sharply and carried through the skin and subcutaneous tissue. The fascia was opened under direct vision. A large wound protector was placed for retraction in the abdominal cavity. We immediately identified a segment of grossly hemorrhagic and necrotic bowel in the right lower quadrant this bowel was elevated into the field and bowel clamps were placed proximally and distally to the devitalized segment. A TIFFANY stapling device was used to divide this bowel and the mesentery was taken along its clearly demarcated line using the LigaSure device.Once the necrotic tissue was out we began examination and evaluation of the abdomen it became clear that there was a internal hernia involving the omentum in the right lower quadrant that was approximately 4 cm in size. The bowel had been through this rent in the omentum creating compression and ischemia. This omentum was divided using the LigaSure device. The 2 ends of the remaining bowel were examined carefully and were viable and seem to be well vascularized. The bowel was then examined from the cecum to the ligament of Treitz. The line of demarcation distally was approximately 3 feet from the ileocecal valve. There were no other areas of inflammation or ischemia. The remainder of the abdominal contents including the colon were healthy in appearance without any other masses. It is notable that there was a large volume of solid stool within the colon and fecalization of the small bowel was apparent.A primary ileoileostomy was performed in a stapled fashion and the edges oversewn with interrupted 3-0 Vicryl suture. The mesenteric defect was closed with interrupted Vicryl suture. The appendix was notably long and I elected to perform an appendectomy. The mesoappendix was divided using the LigaSure device and the appendix was liberated from its attachment to the cecum with another load of the TIFFANY stapling device. The abdomen was then checked completely for hemostasis. It was irrigated with 3 L of warm saline solution and aspirated free of all fluid and particulate matter. While we were satisfied that all was clean, there were no sources of bleeding, all anastomoses were patent, the omentum was placed carefully over the bowel and we proceeded to close the abdomen. This was done using a #1 PDS suture. The skin incisions were closed with interrupted 3-0 nylon sutures and packed in between each stitch with plain Nu Gauze.All sponge, needle, and instrument counts were correct at the conclusion of this portion of the case. The wound was dressed with dry gauze and Medipore tape. The anesthesia service continued to perform a tap block. While they did so, I went to the head of the bed and performed a right subclavian central line. This was done by prepping and draping the right chest in the standard surgical fashion.The right subclavian vein was accessed via Seldinger technique in the deltopectoral groove on the right. The wire was passed through the needle and into the subclavian vein. The needle was removed. The dilator was then passed over the Wire to dilate the tract. This was done with very little resistance. A triple-lumen catheter was then threaded over the wire and into the vein with removal of the J-wire. All ports flushed and jenae easily. The catheter was sewn into place. Chest x-ray revealed the triple- lumen catheter to be in good position in the superior vena cava.Again all sponge, needle, and instrument counts were correct at the conclusion of the case. The patient was allowed awaken from anesthesia and was taken to the intensive care unit in guarded condition.
[2020-03-25] MEDS: SODIUM CHLORIDE 0.9% 1,000 ML IV SCH (20:34)
--- NOTE | 2020-03-25 21:00 | XRAY Report ---
PROCEDURE: Chest for Line Placement INDICATIONS: central line TECHNIQUE: One view of the chest was acquired. COMPARISON: 03/25/2020. FINDINGS: Surgical changes and devices: There is a new right subclavian catheter with the tip extending to the superior vena cava. Nasogastric tube extends into the stomach with the tip not included on the curren t study. A left chest wall dual-lead pacemaker is redemonstrated. Lungs and pleura: No pleural effusions or pneumothorax. No acute consolidation. Mediastinum: Mediastinal contours appear normal. Heart size is normal. Bones and chest wall: No suspicious bony lesions. Overlying soft tissues appear unremarkable. IMPRESSION: 1. No evidence of pneumothorax. Reviewed by: Mahad Robertson MD on 03/25/2020 8:59 PM PST Approved by: Mahad Robertson MD on 03/25/2020 8:59 PM PST Station ID: [id number]
[2020-03-25] MEDS: SODIUM CHLORIDE FLUSH 0.9% 10 ML SYRINGE IVP SCH (22:15)
--- NOTE | 2020-03-25 22:15 | ANESTHESIA POST OP EVALUATION ---
Anesthesia Post Eval - Post Anesthesia Eval Vitals: Last Vital Signs Temp 36.6 C 03/25/20 20:15 Pulse 62 03/25/20 20:15 Resp 10 L 03/25/20 20:15 BP 119/97 H 03/25/20 20:15 Pulse Ox 100 03/25/20 20:15 CV Function Including HR & BP: positive: Stable Pain Control: positive: Satisfactory Nausea & Vomiting: positive: Negative Mental Status: positive: Patient Participates Respiratory Status: Airway Patent Hydration Status: Satisfactory Anesthesia Complications: positive: None
[2020-03-25] MEDS ORDERED: ROPIVACAINE 0.5% PF 20 ML AMPULE ONE (22:16)
[2020-03-25] MEDS ORDERED: PIPERACILLIN/TAZOBACTAM 3.375 GM in SODIUM CHLORIDE 0.9% MINIBAG 100 ML IV ONE (23:00)
--- NOTE | 2020-03-25 23:19 | HISTORY & PHYSICAL EXAMINATION ---
DATE OF SERVICE: 03/25/2020 Physician: Mila Tabares MD HISTORY OF PRESENT ILLNESS: This is a 75-year-old white male with a history of restless leg syndrome, sleep apnea, who cannot tolerate CPAP, chronic constipation. He was admitted here three weeks ago for syncope, found to be in new onset of atrial flutter and his workup then showed that he had intermittent 8:1 block, in atrial flutter and he required transfer to [facility] for insertion of a permanent pacemaker. The Echo done here during that admission three weeks ago showed a cardiomyopathy of undetermined type with LVEF 40%, cor pulmonale and presence of a PFO and mild pulmonary hypertension. The patient presented now with rapid onset of abdominal pain with nausea and vomiting. He presented to the emergency room where workup showed that he had no fever, normal white blood count, but CT of the abdomen and pelvis showed a high- grade small-bowel obstruction. He did not get pain relief even with Dilaudid and was fidgety and worrisome. He was seen by the surgical services assistant and deemed to be necessary to take to the operating room urgently. He is being admitted on the Hospitalist service after coming out of the operating room, where he underwent abdominal surgery by Dr. Negrita Kelsey, and the findings were that he had an omental hernia and bowel was trapped in it and was ischemic. He needed resection of a long piece of ischemic bowel, but tghe bowel was reanastomosed. He is being admitted to ICU out of the PACU. PAST MEDICAL HISTORY 1. Chronic atrial flutter. 2. Cardiomyopathy of undetermined type. 3. Cor pulmonale. 4. PFO. 5. Sleep apnea, not tolerating CPAP. 6. Restless leg syndrome. 7. Recent imlantation of a pacemaker for high-grade block when he was admitted for syncope three weeks ago. ALLERGIES 1. DIAZEPAM. 2. SULFA ANTIBIOTICS. MEDICATIONS 1. Eliquis 5 mg b.i.d. 2. Gabapentin 100 or 200 mg every night. 3. Toprol-XL 25 or 50 mg daily. 4. Spironolactone 25 mg daily. 5. Losartan 25 mg daily. FAMILY HISTORY: On both sides of the family, there is coronary artery disease and strokes. His brother had cardiac disease in his 50s and a nephew has coronary artery disease in his 40s. The patient has no natural children. SOCIAL HISTORY: He lives with his . He is retired from [employer]. He never smoked cigarettes. He drinks one glass of wine with dinner. There is no illicit drug use history. REVIEW OF SYSTEMS: There has been no fever, diarrhea, melena, hematochezia. He had a colonoscopy last done about 20 years ago. It is unclear if there was a workup for his cardiomyopathy when he was at [facility] three weeks ago for the pacemaker insertion. A comprehensive review of systems is done from chart review, and he answers questions briefly, since he is still lethargic from coming out of the OR. The pertinent positives are listed, the rest are negative. PHYSICAL EXAM GENERAL: Thin, elderly, white male. He is somnolent from coming out of anesthesia in the OR. VITAL SIGNS: Blood pressure 119/97, heart rate 62, which is intermittently demand paced. Oxygen saturation is 98% on room air. HEENT: Unremarkable, except he is thin and has male pattern baldness. NECK: No JVD at a 30-degree upright angle. CHEST: Clear anteriorly. HEART: Normal heart sounds without murmur. ABDOMEN: Has bandages and no bowel sounds. EXTREMITIES: No clubbing, cyanosis or edema. NEUROLOGIC: Currently somnolent, but prior to that, it was nonfocal. LABORATORY DATA: Sodium 137, potassium 5.1, BUN 25, creatinine 0.7. Lactic acid 1.3. Normal liver tests and lipase. White blood count 8.8, hemoglobin 13.8 with a normal MCV, platelet count normal at 132. Urinalysis unremarkable. His BioFire was negative for everything including COVID. IMAGING: Chest x-ray: No active pulmonary disease and after the OR, there is an NG tube with tip in the stomach, right CVP catheter in the SVC and no pneumothorax and a left chest pacemaker device is seen. The abdomen and pelvis CT done in the ER showed moderate to high-grade small- bowel obstruction with fluid distended bowel loops in the left side of the abdomen and lower abdomen and pelvis, and there may be small bowel loop in the right lower quadrant too. There is a small amount of ascites, but no free air. There is no evidence of acute appendicitis or abscess collection. There is a small umbilical hernia containing ascites fluid. There is also renal cyst. EKG: Atrial flutter with variable block, ventricular demand pacing is seen, his kalispel QRS complexes have a right bundle branch block and this is similar to previous. IMPRESSION/DIAGNOSES 1. Small bowel obstruction, this appears to be mechanical since the patient has never had prior abdominal surgery, and what was reported by the surgeon is that he had an omental hernia and bowel was trapped within that packet. 2. Ischemic bowel. 3. Chronic atrial flutter, he is on Eliquis. 4. Sleep apnea, not tolerating CPAP. 5. Restless leg syndrome. 6. History of pacemaker, recently placed for high-grade block when he was in 8:1 atrial flutter and this was found during his admission for recurrent syncope three weeks ago. 7. Constipation. This was reported by the surgeon, noted during hus surgery. 8. LV cardiomyopathy of undetermined type. 9. Cor pulmonale, likley from pulmonary HTMN and untreated sleep apnea. 10. Patent foramen ovale, may be primary and congenital or secondary to the Cor pulmonale. PLAN: Admit the patient to the ICU on telemetry with ICU protocols. Surgical site management per the general surgeon. Continue with NG tube for decompression and n.p.o. diet. Continue with pain medication as per surgery. Continue with IV fluids while he is n.p.o. Follow his electrolytes and replace as needed. Begin empiric iv antibiotics using Zosyn. Old records should be requested from [facility] regarding whether any workup was done of the new finding of cardiomyopathy (from the finding on Echo done here, three weeks ago). Hold po meds Eliquis, Spironolactone and Gabapentin, and use iv B-blockers instead of po. DEEP VENOUS THROMBOSIS PROPHYLAXIS: SCDs. CODE STATUS: FULL CODE. ATTESTATION: Patient is expected to be discharged or transferred to another facility within 96 hours: Yes. cc: Rob Porras MD TD: 03/25/2020 22:02 MTDD
[2020-03-26] MEDS: SODIUM CHLORIDE FLUSH 0.9% 10 ML SYRINGE IVP SCH ×4 (00:12→23:12)
[2020-03-26] MEDS: PIPERACILLIN/TAZOBACTAM 3.375 GM in SODIUM CHLORIDE 0.9% MINIBAG 100 ML IV SCH ×3 (03:02→19:03)
[2020-03-26] MEDS ORDERED: SODIUM CHLORIDE 0.9% 500 ML IV PRN (03:32)
[2020-03-26] MEDS ORDERED: SODIUM CHLORIDE FLUSH 0.9% 10 ML SYRINGE IVP PRN (03:32)
[2020-03-26] MEDS: BENZOCAINE/MENTHOL LOZENGE MM PRN ×2 (04:24→20:30)
[2020-03-26] MEDS: HYDROmorphone 1 MG/ML CARPUJECT IVP PRN ×4 (04:24→23:59)
[2020-03-26 05:03] LABS: BASOPHILS % (AUTO) 0.1 %; EOSINOPHILS % (AUTO) 0.1 %; HGB - HEMOGLOBIN 10.6 g/dL (14.0-18.0); LYMPHOCYTES # (AUTO) 0.9 10^3/uL (1.5-3.5); LYMPHOCYTES % (AUTO) 8.9 %; MEAN CORPUSCULAR HEMOGLOBIN 32.1 pg (27.0-31.0); MEAN CORPUSCULAR HGB CONC 34.1 g/dL (32.0-36.0); MEAN CORPUSCULAR VOLUME 94.2 fL (80.0-94.0); MEAN PLATELET VOLUME 10.9 fL (7.4-11.4); MONOCYTES # (AUTO) 0.8 10^3/uL (0.0-1.0); MONOCYTES % (AUTO) 7.4 %; NEUTROPHILS # (AUTO) 8.4 10^3/uL (1.5-6.6); NEUTROPHILS % (AUTO) 83.1 %; PLT - PLATELET COUNT 102 10^3/uL (130-450); RED CELL DISTRIBUTION WIDTH 13.1 % (12.0-15.0); WHITE BLOOD COUNT 10.1 x10^3/uL (4.8-10.8)
[2020-03-26 05:13] LABS: CALCIUM 7.7 mg/dL (8.5-10.3); CREATININE 0.8 mg/dL (0.6-1.2); MAGNESIUM 1.7 mg/dL (1.7-2.8); PHOSPHORUS 3.3 mg/dL (2.5-4.6)
[2020-03-26] MEDS: PANTOPRAZOLE 40 MG VIAL IVP SCH (06:29)
[2020-03-26] MEDS: SODIUM CHLORIDE 0.9% 1,000 ML IV SCH ×2 (06:30→17:02)
[2020-03-26] MEDS: SODIUM CHLORIDE FLUSH 0.9% 10 ML SYRINGE IVP PRN ×3 (06:30→23:59)
--- NOTE | 2020-03-26 07:37 | PROVIDER PROGRESS NOTE ---
Subjective - Prog Note Date Prog Note Date: 03/26/20 - Subjective Subjective: Reorts feeling a little better. Continues to have abdominal pain. He is not passing gas. Has not had a bowel movement. Complains of a dry mouth. Current Medications - Current Medications Current Medications: Active Medications Hydromorphone HCl (Hydromorphone 1 Mg/Ml Carpuject) 1 mg IVP Q2HR PRN PRN Reason: PAIN >8 Sodium Chloride (Normal Saline 0.9%) 1,000 mls @ 100 mls/hr IV .Q10H [facility] Last Infusion: 03/26/20 14:58 Dose: 100 mls/hr Documented by: Piperacillin Sod/Tazobactam (Sod 3.375 gm/ Sodium Chloride) 100 mls @ 25 mls/hr IV Q8H [facility] Last Infusion: 03/26/20 14:58 Dose: 25 mls/hr Documented by: Sodium Chloride (Normal Saline 0.9%) 500 mls @ 0 mls/hr IV Q24H PRN PRN Reason: TKO RATE Ketorolac Tromethamine (Ketorolac 15 Mg/Ml Vial) 15 mg IVP Q6HR PRN PRN Reason: PAIN Stop: 03/31/20 13:46 Last Admin: 03/26/20 14:59 Dose: 15 mg Documented by: Ondansetron HCl (Ondansetron 4 Mg/2 Ml Vial) 4 mg IVP Q6HR PRN PRN Reason: Nausea / Vomiting Pantoprazole Sodium (Pantoprazole 40 Mg Vial) 40 mg IVP QDAC [facility] Last Admin: 03/26/20 06:29 Dose: 40 mg Documented by: Sodium Chloride (Sodium Chloride Flush 0.9% 10 Ml Syringe) 10 ml IVP PRN PRN PRN Reason: NEEDED PER PROVIDER ORDERS Last Admin: 03/26/20 15:04 Dose: 10 ml Documented by: Sodium Chloride (Sodium Chloride Flush 0.9% 10 Ml Syringe) 10 ml IVP 0100,0900,1700 [facility] Last Admin: 03/26/20 09:45 Dose: 30 ml Documented by: Sodium Chloride (Sodium Chloride Flush 0.9% 10 Ml Syringe) 20 ml IVP PRN PRN PRN Reason: After Blood Draw Last Admin: 03/26/20 06:30 Dose: 20 ml Documented by: Throat Lozenges (Benzocaine/Menthol Lozenge) 1 lozenge MM Q2HR PRN PRN Reason: Throat pain Last Admin: 03/26/20 04:24 Dose: 1 lozenge Documented by: Gabapentin [Neurontin] 100 - 200 mg PO QPM 02/26/20 Apixaban [Eliquis] 5 mg PO BID 03/25/20 Losartan Potassium 25 mg PO DAILY 03/25/20 Metoprolol Succinate [Toprol Xl] 50 mg PO DAILY 03/25/20 Spironolactone [Aldactone] 25 mg PO DAILY 03/25/20 Objective - Vital Signs/Intake & Output Reviewed Vital Signs: Yes Vital Signs: Vital Signs Temp Pulse Resp BP Pulse Ox 03/26/20 07:00 73 10 L 101/51 L 97 03/26/20 06:00 89 14 104/51 L 92 03/26/20 05:00 84 20 93/49 L 95 03/26/20 04:00 36.4 C L 84 10 L 104/56 L 94 Intake & Output: Intake & Output 03/23/20 03/24/20 03/25/20 03/26/20 23:59 23:59 23:59 23:59 Intake Total 30 1093.333 Output Total 340 585 Balance -310 508.333 - Objective General Appearance: positive: No acute distress, Alert Eyes Bilateral: positive: Normal inspection, Conjunctivae nml ENT: positive: ENT inspection nml, Other (NG tube in place.) Neck: positive: Nml inspection Respiratory: positive: No respiratory distress. negative: Wheezes, Rales Cardiovascular: negative: Irregularly irregular, Tachycardia, Systolic murmur Abdomen: positive: No distention, Tenderness, Abnml bowel sounds (Hypoactive.), Other (Dressing in place.). negative: Non-tender (Minimal diffuse tenderness.), Guarding, Rebound Skin: positive: Warm, Dry Extremities: positive: No pedal edema Neurologic/Psychiatric: negative: Disoriented to person, Disoriented to place - Lab Results Fish Bones: 03/26/20 04:44 03/26/20 04:44 Other Labs: Lab Results x24hrs 03/26/20 03/26/20 03/25/20 Range/Units 04:44 04:44 21:35 WBC 10.1 (4.8-10.8) x10^3/uL RBC 3.30 L (4.70-6.10) 10^6/uL Hgb 10.6 L (14.0-18.0) g/dL Hct 31.1 L (42.0-52.0) % MCV 94.2 H (80.0-94.0) fL MCH 32.1 H (27.0-31.0) pg MCHC 34.1 (32.0-36.0) g/dL RDW 13.1 (12.0-15.0) % Plt Count 102 L (130-450) 10^3/uL MPV 10.9 (7.4-11.4) fL Neut # (Auto) 8.4 H (1.5-6.6) 10^3/uL Lymph # (Auto) 0.9 L (1.5-3.5) 10^3/uL [place] # (Auto) 0.8 (0.0-1.0) 10^3/uL Eos # (Auto) 0.0 (0.0-0.7) 10^3/uL Baso # (Auto) 0.0 (0.0-0.1) 10^3/uL Absolute Nucleated RBC 0.00 x10^3/uL Nucleated RBC % 0.0 /100WBC Sodium 137 (135-145) mmol/L Potassium 3.9 (3.5-5.0) mmol/L Chloride 107 (101-111) mmol/L Carbon Dioxide 24 (21-32) mmol/L Anion Gap 6.0 (6-13) BUN 20 (6-20) mg/dL Creatinine 0.8 (0.6-1.2) mg/dL Estimated GFR (MDRD) 94 (>89) Glucose 142 H (70-100) mg/dL Lactic Acid (0.5-2.2) mmol/L Calcium 7.7 L (8.5-10.3) mg/dL Phosphorus 3.3 (2.5-4.6) mg/dL Magnesium 1.7 (1.7-2.8) mg/dL Total Bilirubin (0.2-1.0) mg/dL AST (10-42) IU/L ALT (10-60) IU/L Alkaline Phosphatase (42-121) IU/L Total Protein (6.7-8.2) g/dL Albumin (3.2-5.5) g/dL Globulin (2.1-4.2) g/dL Albumin/Globulin Ratio (1.0-2.2) Lipase (22-51) U/L Urine Color Urine Clarity (CLEAR) Urine pH (5.0-7.5) PH Ur Specific [place] (1.002-1.030) Urine Protein (NEGATIVE) mg/dL Urine Glucose (UA) (NEGATIVE) mg/dL Urine Ketones (NEGATIVE) mg/dL Urine Occult Blood (NEGATIVE) Urine Nitrite (NEGATIVE) Urine Bilirubin (NEGATIVE) Urine Urobilinogen (NORMAL) E.U./dL Ur Leukocyte Esterase (NEGATIVE) Ur Microscopic Review Urine Culture Comments Nasal Adenovirus (PCR) Nasal B. parapertussis DNA (PCR) Nasal Coronavir 229E PCR Nasal Coronavir HKU1 PCR Nasal Coronavir NL63 PCR Nasal Coronavir OC43 PCR Nasal Enterovir/Rhinovir PCR Nasal Influenza B PCR Nasal Influenza A PCR Nasal Parainfluen 1 PCR Nasal Parainfluen 2 PCR Nasal Parainfluen 3 PCR Nasal Parainfluen 4 PCR Nasal RSV (PCR) Nasal Screen MRSA (PCR) NEGATIVE (NEGATIVE) Nasal B.pertussis DNA PCR Nasal C.pneumoniae (PCR) Gerald Human Metapneumo PCR Nasal M.pneumoniae (PCR) Nasal SARS-CoV-2 (PCR) 03/25/20 03/25/20 03/25/20 Range/Units 16:27 13:27 13:24 WBC (4.8-10.8) x10^3/uL RBC (4.70-6.10) 10^6/uL Hgb (14.0-18.0) g/dL Hct (42.0-52.0) % MCV (80.0-94.0) fL MCH (27.0-31.0) pg MCHC (32.0-36.0) g/dL RDW (12.0-15.0) % Plt Count (130-450) 10^3/uL MPV (7.4-11.4) fL Neut # (Auto) (1.5-6.6) 10^3/uL Lymph # (Auto) (1.5-3.5) 10^3/uL [place] # (Auto) (0.0-1.0) 10^3/uL Eos # (Auto) (0.0-0.7) 10^3/uL Baso # (Auto) (0.0-0.1) 10^3/uL Absolute Nucleated RBC x10^3/uL Nucleated RBC % /100WBC Sodium (135-145) mmol/L Potassium (3.5-5.0) mmol/L Chloride (101-111) mmol/L Carbon Dioxide (21-32) mmol/L Anion Gap (6-13) BUN (6-20) mg/dL Creatinine (0.6-1.2) mg/dL Estimated GFR (MDRD) (>89) Glucose (70-100) mg/dL Lactic Acid 1.3 (0.5-2.2) mmol/L Calcium (8.5-10.3) mg/dL Phosphorus (2.5-4.6) mg/dL Magnesium (1.7-2.8) mg/dL Total Bilirubin (0.2-1.0) mg/dL AST (10-42) IU/L ALT (10-60) IU/L Alkaline Phosphatase (42-121) IU/L Total Protein (6.7-8.2) g/dL Albumin (3.2-5.5) g/dL Globulin (2.1-4.2) g/dL Albumin/Globulin Ratio (1.0-2.2) Lipase (22-51) U/L Urine Color YELLOW Urine Clarity CLEAR (CLEAR) Urine pH 6.0 (5.0-7.5) PH Ur Specific [place] 1.010 (1.002-1.030) Urine Protein NEGATIVE (NEGATIVE) mg/dL Urine Glucose (UA) NEGATIVE (NEGATIVE) mg/dL Urine Ketones TRACE (NEGATIVE) mg/dL Urine Occult Blood NEGATIVE (NEGATIVE) Urine Nitrite NEGATIVE (NEGATIVE) Urine Bilirubin NEGATIVE (NEGATIVE) Urine Urobilinogen 0.2 (NORMAL) (NORMAL) E.U./dL Ur Leukocyte Esterase NEGATIVE (NEGATIVE) Ur Microscopic Review NOT INDICATED Urine Culture Comments NOT INDICATED Nasal Adenovirus (PCR) NOT DETECTED Nasal B. parapertussis DNA (PCR) NOT DETECTED Nasal Coronavir 229E PCR NOT DETECTED Nasal Coronavir HKU1 PCR NOT DETECTED Nasal Coronavir NL63 PCR NOT DETECTED Nasal Coronavir OC43 PCR NOT DETECTED Nasal Enterovir/Rhinovir PCR NOT DETECTED Nasal Influenza B PCR NOT DETECTED Nasal Influenza A PCR NOT DETECTED Nasal Parainfluen 1 PCR NOT DETECTED Nasal Parainfluen 2 PCR NOT DETECTED Nasal Parainfluen 3 PCR NOT DETECTED Nasal Parainfluen 4 PCR NOT DETECTED Nasal RSV (PCR) NOT DETECTED Nasal Screen MRSA (PCR) (NEGATIVE) Nasal B.pertussis DNA PCR NOT DETECTED Nasal C.pneumoniae (PCR) NOT DETECTED Gerald Human Metapneumo PCR NOT DETECTED Nasal M.pneumoniae (PCR) NOT DETECTED Nasal SARS-CoV-2 (PCR) NOT DETECTED 03/25/20 03/25/20 Range/Units 11:59 11:59 WBC 8.8 (4.8-10.8) x10^3/uL RBC 4.27 L (4.70-6.10) 10^6/uL Hgb 13.8 L (14.0-18.0) g/dL Hct 40.1 L (42.0-52.0) % MCV 93.9 (80.0-94.0) fL MCH 32.3 H (27.0-31.0) pg MCHC 34.4 (32.0-36.0) g/dL RDW 12.8 (12.0-15.0) % Plt Count 132 (130-450) 10^3/uL MPV 10.6 (7.4-11.4) fL Neut # (Auto) 7.7 H (1.5-6.6) 10^3/uL Lymph # (Auto) 0.8 L (1.5-3.5) 10^3/uL [place] # (Auto) 0.3 (0.0-1.0) 10^3/uL Eos # (Auto) 0.0 (0.0-0.7) 10^3/uL Baso # (Auto) 0.0 (0.0-0.1) 10^3/uL Absolute Nucleated RBC 0.00 x10^3/uL Nucleated RBC % 0.0 /100WBC Sodium 137 (135-145) mmol/L Potassium 5.1 H (3.5-5.0) mmol/L Chloride 104 (101-111) mmol/L Carbon Dioxide 27 (21-32) mmol/L Anion Gap 6.0 (6-13) BUN 25 H (6-20) mg/dL Creatinine 0.7 (0.6-1.2) mg/dL Estimated GFR (MDRD) 110 (>89) Glucose 145 H (70-100) mg/dL Lactic Acid (0.5-2.2) mmol/L Calcium 9.3 (8.5-10.3) mg/dL Phosphorus (2.5-4.6) mg/dL Magnesium (1.7-2.8) mg/dL Total Bilirubin 1.0 (0.2-1.0) mg/dL AST 26 (10-42) IU/L ALT 28 (10-60) IU/L Alkaline Phosphatase 70 (42-121) IU/L Total Protein 6.8 (6.7-8.2) g/dL Albumin 3.9 (3.2-5.5) g/dL Globulin 2.9 (2.1-4.2) g/dL Albumin/Globulin Ratio 1.3 (1.0-2.2) Lipase 23 (22-51) U/L Urine Color Urine Clarity (CLEAR) Urine pH (5.0-7.5) PH Ur Specific [place] (1.002-1.030) Urine Protein (NEGATIVE) mg/dL Urine Glucose (UA) (NEGATIVE) mg/dL Urine Ketones (NEGATIVE) mg/dL Urine Occult Blood (NEGATIVE) Urine Nitrite (NEGATIVE) Urine Bilirubin (NEGATIVE) Urine Urobilinogen (NORMAL) E.U./dL Ur Leukocyte Esterase (NEGATIVE) Ur Microscopic Review Urine Culture Comments Nasal Adenovirus (PCR) Nasal B. parapertussis DNA (PCR) Nasal Coronavir 229E PCR Nasal Coronavir HKU1 PCR Nasal Coronavir NL63 PCR Nasal Coronavir OC43 PCR Nasal Enterovir/Rhinovir PCR Nasal Influenza B PCR Nasal Influenza A PCR Nasal Parainfluen 1 PCR Nasal Parainfluen 2 PCR Nasal Parainfluen 3 PCR Nasal Parainfluen 4 PCR Nasal RSV (PCR) Nasal Screen MRSA (PCR) (NEGATIVE) Nasal B.pertussis DNA PCR Nasal C.pneumoniae (PCR) Gerald Human Metapneumo PCR Nasal M.pneumoniae (PCR) Nasal SARS-CoV-2 (PCR) Assessment/Plan - Problem List (1) Small bowel obstruction Impression: This was secondary to an internal hernia. There was evidence of bowel ischemia. He is now postop day 1 with general surgery. We will continue with current pain regimen and add Toradol as needed. Continued n.p.o. status. Will likely start on clear liquid diet over next 24 hours as long as okay with general surgery. Continue with NG tube to suction. Up and out of bed as tolerated. (2) Ischemia, bowel Impression: He is status post small bowel resection for ischemic bowel secondary to internal hernia and obstruction. Management as mentioned above. (3) Atrial flutter Impression: He has been in atrial flutter and atrial fibrillation at times. 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 Monitor on telemetry. We will also resume his home Eliquis once taking p.o. Qualifiers: Atrial flutter type: unspecified Qualified Code(s): I48.92 - Unspecified atrial flutter (4) Cardiomyopathy Impression: He has a history of cardiomyopathy with ejection fraction of approximately 40- 45%. He does not appear to be in exacerbation. We will resume metoprolol, spironolactone, losartan once taking p.o. (5) Presence of cardiac pacemaker Impression: He has a pacemaker in place due to history of high-grade AV block. Monitor on telemetry.
[2020-03-26] MEDS ORDERED: MAGNESIUM SULFATE 2 GRAM 2 GM/50 ML BAG IV ONE (07:48)
--- NOTE | 2020-03-26 07:57 | XRAY Report ---
PROCEDURE: Chest 1 View X-Ray INDICATIONS: Pleuritic pain, POD #1 TECHNIQUE: One view of the chest was acquired. COMPARISON: 03/25/2020 FINDINGS: Surgical changes and devices: Left-sided cardiac pacer device is unchanged in positioning. Nasogastri c tube extends below the level of the diaphragm with the distal tip excluded off the [id number]. R ight-sided central venous catheter is noted with the distal tip projecting in the lower SVC.. Lungs and pleura: Mild diffuse interstitial prominence. Minimal perihilar airway thickening. No foca l consolidation. No pleural effusions or pneumothorax. Mediastinum: Mediastinal contours appear stable. Heart size is stable and at the upper limits of no rmal. Bones and chest wall: No suspicious bony lesions. Overlying soft tissues appear unremarkable. Mini mal amount of pneumoperitoneum likely from recent surgical procedure. IMPRESSION: 1. Stable positioning of support equipment. 2. Mild diffuse interstitial prominence and heart size at the upper limits. This is nonspecific and m ay represent an infectious versus inflammatory process versus mild pulmonary edema. 3. Very small amount of pneumoperitoneum which is likely related to recent surgical procedure. Recommend continued clinical with follow-up imaging surveillance as needed. No significant discrepancy with initial interpretation by overnight radiologist. Reviewed by: Fabricio Keller MD on 03/26/2020 7:55 AM PST Approved by: Fabricio Keller MD on 03/26/2020 7:55 AM PST Station ID: [id number]
[2020-03-26] MEDS: KETOROLAC 15 MG/ML VIAL IVP PRN ×2 (14:59→23:12)
--- NOTE | 2020-03-26 16:52 | PROVIDER PROGRESS NOTE ---
Subjective - General Admit Date: 03/25/20 Procedure Date: 03/25/20 Post Op Days: 1 Procedure Performed: Laparotomy with small bowel resection - Review of Systems Wound/Incisions: positive: Dressing dry and intact General: positive: Weakness, Fatigue HEENT: positive: No symptoms Cardiovascular: positive: No symptoms Gastrointestinal: positive: Other (Thirsty). negative: Nausea, Vomiting Genitourinary: positive: Other (Cabral in place) - Other Other Information/Narrative: Feeling much better today than yesterday. Toradol has worked well for pain control. No flatus and no nausea. Thirsty Objective - Patient Data Vital Signs: Vital Signs x48h Temp Pulse Resp BP Pulse Ox 03/26/20 16:00 37 C 63 15 96/42 L 100 03/26/20 15:00 61 12 97/43 L 100 03/26/20 14:00 72 10 L 102/47 L 100 03/26/20 13:00 36.8 C 72 15 108/58 L 100 03/26/20 11:00 89 17 113/51 L 98 03/26/20 10:00 85 12 117/48 L 99 03/26/20 09:50 86 L 03/26/20 09:00 88 14 105/48 L 97 Weight: Weight 03/24/20 03/25/20 03/26/20 23:59 23:59 23:59 Weight (kg) 70.307 kg 73 kg Intake & Output: Intake and Output Totals x24h 03/24/20 03/25/20 03/26/20 23:59 23:59 23:59 Intake Total 30 2177.082 Output Total 340 1067 Balance -310 1110.082 - Lab Results Lab Results: 03/26/20 04:44 03/26/20 04:44 Other Lab Results: Lab Results x24hrs 03/26/20 03/26/20 03/26/20 Range/Units 04:44 04:44 04:44 WBC 10.1 (4.8-10.8) x10^3/uL RBC 3.30 L (4.70-6.10) 10^6/uL Hgb 10.6 L (14.0-18.0) g/dL Hct 31.1 L (42.0-52.0) % MCV 94.2 H (80.0-94.0) fL MCH 32.1 H (27.0-31.0) pg MCHC 34.1 (32.0-36.0) g/dL RDW 13.1 (12.0-15.0) % Plt Count 102 L (130-450) 10^3/uL MPV 10.9 (7.4-11.4) fL Neut # (Auto) 8.4 H (1.5-6.6) 10^3/uL Lymph # (Auto) 0.9 L (1.5-3.5) 10^3/uL [place] # (Auto) 0.8 (0.0-1.0) 10^3/uL Eos # (Auto) 0.0 (0.0-0.7) 10^3/uL Baso # (Auto) 0.0 (0.0-0.1) 10^3/uL Absolute Nucleated RBC 0.00 x10^3/uL Nucleated RBC % 0.0 /100WBC Sodium 137 (135-145) mmol/L Potassium 3.9 (3.5-5.0) mmol/L Chloride 107 (101-111) mmol/L Carbon Dioxide 24 (21-32) mmol/L Anion Gap 6.0 (6-13) BUN 20 (6-20) mg/dL Creatinine 0.8 (0.6-1.2) mg/dL Estimated GFR (MDRD) 94 (>89) Glucose 142 H (70-100) mg/dL Calcium 7.7 L (8.5-10.3) mg/dL Phosphorus 3.3 (2.5-4.6) mg/dL Magnesium 1.7 (1.7-2.8) mg/dL Albumin 2.7 L (3.2-5.5) g/dL Nasal Adenovirus (PCR) Nasal B. parapertussis DNA (PCR) Nasal Coronavir 229E PCR Nasal Coronavir HKU1 PCR Nasal Coronavir NL63 PCR Nasal Coronavir OC43 PCR Nasal Enterovir/Rhinovir PCR Nasal Influenza B PCR Nasal Influenza A PCR Nasal Parainfluen 1 PCR Nasal Parainfluen 2 PCR Nasal Parainfluen 3 PCR Nasal Parainfluen 4 PCR Nasal RSV (PCR) Nasal Screen MRSA (PCR) (NEGATIVE) Nasal B.pertussis DNA PCR Nasal C.pneumoniae (PCR) Gerald Human Metapneumo PCR Nasal M.pneumoniae (PCR) Nasal SARS-CoV-2 (PCR) 03/25/20 03/25/20 Range/Units 21:35 16:27 WBC (4.8-10.8) x10^3/uL RBC (4.70-6.10) 10^6/uL Hgb (14.0-18.0) g/dL Hct (42.0-52.0) % MCV (80.0-94.0) fL MCH (27.0-31.0) pg MCHC (32.0-36.0) g/dL RDW (12.0-15.0) % Plt Count (130-450) 10^3/uL MPV (7.4-11.4) fL Neut # (Auto) (1.5-6.6) 10^3/uL Lymph # (Auto) (1.5-3.5) 10^3/uL [place] # (Auto) (0.0-1.0) 10^3/uL Eos # (Auto) (0.0-0.7) 10^3/uL Baso # (Auto) (0.0-0.1) 10^3/uL Absolute Nucleated RBC x10^3/uL Nucleated RBC % /100WBC Sodium (135-145) mmol/L Potassium (3.5-5.0) mmol/L Chloride (101-111) mmol/L Carbon Dioxide (21-32) mmol/L Anion Gap (6-13) BUN (6-20) mg/dL Creatinine (0.6-1.2) mg/dL Estimated GFR (MDRD) (>89) Glucose (70-100) mg/dL Calcium (8.5-10.3) mg/dL Phosphorus (2.5-4.6) mg/dL Magnesium (1.7-2.8) mg/dL Albumin (3.2-5.5) g/dL Nasal Adenovirus (PCR) NOT DETECTED Nasal B. parapertussis DNA (PCR) NOT DETECTED Nasal Coronavir 229E PCR NOT DETECTED Nasal Coronavir HKU1 PCR NOT DETECTED Nasal Coronavir NL63 PCR NOT DETECTED Nasal Coronavir OC43 PCR NOT DETECTED Nasal Enterovir/Rhinovir PCR NOT DETECTED Nasal Influenza B PCR NOT DETECTED Nasal Influenza A PCR NOT DETECTED Nasal Parainfluen 1 PCR NOT DETECTED Nasal Parainfluen 2 PCR NOT DETECTED Nasal Parainfluen 3 PCR NOT DETECTED Nasal Parainfluen 4 PCR NOT DETECTED Nasal RSV (PCR) NOT DETECTED Nasal Screen MRSA (PCR) NEGATIVE (NEGATIVE) Nasal B.pertussis DNA PCR NOT DETECTED Nasal C.pneumoniae (PCR) NOT DETECTED Gerald Human Metapneumo PCR NOT DETECTED Nasal M.pneumoniae (PCR) NOT DETECTED Nasal SARS-CoV-2 (PCR) NOT DETECTED - Current Medications Current Medications: Current Medications Generic Name Dose Route Start Last Admin Trade Name Freq PRN Reason Stop Dose Admin Sodium Chloride 1,000 mls @ 100 mls/hr 03/25/20 14:00 03/26/20 14:58 Normal Saline 0.9% IV 100 mls/hr .Q10H [facility] Infusion Piperacillin Sod/Tazobactam 100 mls @ 25 mls/hr 03/26/20 03:00 03/26/20 14:58 Sod 3.375 gm/ Sodium Chloride IV 25 mls/hr Q8H [facility] Infusion Ketorolac Tromethamine 15 mg 03/26/20 13:47 03/26/20 14:59 Ketorolac 15 Mg/Ml Vial IVP 03/31/20 13:46 15 mg Q6HR PRN Administration PAIN Pantoprazole Sodium 40 mg 03/26/20 07:00 03/26/20 06:29 Pantoprazole 40 Mg Vial IVP 40 mg QDAC [facility] Administration Sodium Chloride 10 ml 03/25/20 13:52 03/26/20 15:04 Sodium Chloride Flush 0.9% 10 Ml Syringe IVP 10 ml PRN PRN Administration NEEDED PER PROVIDER ORDERS Sodium Chloride 10 ml 03/25/20 17:00 03/26/20 09:45 Sodium Chloride Flush 0.9% 10 Ml Syringe IVP 30 ml 0100,0900,1700 [facility] Administration Sodium Chloride 20 ml 03/26/20 03:32 03/26/20 06:30 Sodium Chloride Flush 0.9% 10 Ml Syringe IVP 20 ml PRN PRN Administration After Blood Draw Throat Lozenges 1 lozenge 03/26/20 03:33 03/26/20 04:24 Benzocaine/Menthol Lozenge MM 1 lozenge Q2HR PRN Administration Throat pain ABX Reporting Has patient been on IV antibiotics over the past 48 hours?: Yes Impression/Plan - Problem List Problem List: 1. Continue Zosyn for certain bacterial translocation 2. Add acetaminophen IV for pain control 3. D/C NGT 4. D/C [place] 5. Clear liquids and ice chips to tolerance 6. Heavy stool burden so will give 1 dose lactulose prior to removing the NGT
[2020-03-26] MEDS: ACETAMINOPHEN 1,000 MG/100 ML 100 ML IV PRN (20:31)
[2020-03-27] MEDS: SODIUM CHLORIDE 0.9% 1,000 ML IV SCH ×4 (02:48→22:45)
[2020-03-27] MEDS: PIPERACILLIN/TAZOBACTAM 3.375 GM in SODIUM CHLORIDE 0.9% MINIBAG 100 ML IV SCH ×2 (02:50→12:00)
[2020-03-27 05:33] LABS: BASOPHILS % (AUTO) 0.3 %; EOSINOPHILS # (AUTO) 0.1 10^3/uL (0.0-0.7); EOSINOPHILS % (AUTO) 1.2 %; HGB - HEMOGLOBIN 9.3 g/dL (14.0-18.0); LYMPHOCYTES # (AUTO) 1.3 10^3/uL (1.5-3.5); LYMPHOCYTES % (AUTO) 21.8 %; MEAN CORPUSCULAR HEMOGLOBIN 31.7 pg (27.0-31.0); MEAN CORPUSCULAR HGB CONC 32.3 g/dL (32.0-36.0); MEAN CORPUSCULAR VOLUME 98.3 fL (80.0-94.0); MEAN PLATELET VOLUME 11.1 fL (7.4-11.4); MONOCYTES # (AUTO) 0.5 10^3/uL (0.0-1.0); NEUTROPHILS # (AUTO) 4.1 10^3/uL (1.5-6.6); NEUTROPHILS % (AUTO) 67.4 %; PLT - PLATELET COUNT 83 10^3/uL (130-450); RED BLOOD COUNT 2.93 10^6/uL (4.70-6.10); RED CELL DISTRIBUTION WIDTH 13.3 % (12.0-15.0)
[2020-03-27 05:44] LABS: CALCIUM 8.1 mg/dL (8.5-10.3); CREATININE 0.8 mg/dL (0.6-1.2); MAGNESIUM 2.1 mg/dL (1.7-2.8)
[2020-03-27] MEDS: PANTOPRAZOLE 40 MG VIAL IVP SCH (06:18)
[2020-03-27] MEDS: SODIUM CHLORIDE FLUSH 0.9% 10 ML SYRINGE IVP PRN (06:18)
--- NOTE | 2020-03-27 07:33 | PROVIDER PROGRESS NOTE ---
Subjective - Prog Note Date Prog Note Date: 03/27/20 - Subjective Subjective: Reports feeling relatively well. Has a little nausea but no vomiting. Has not had bowel movement or pass gas. States abdominal pain is controlled. Current Medications - Current Medications Current Medications: Active Medications Bisacodyl (Bisacodyl 10 Mg Supp) 10 mg MT DAILY [facility] Last Admin: 03/27/20 11:34 Dose: 10 mg Documented by: Hydromorphone HCl (Hydromorphone 1 Mg/Ml Carpuject) 1 mg IVP Q2HR PRN PRN Reason: PAIN >8 Last Admin: 03/26/20 23:59 Dose: 1 mg Documented by: Sodium Chloride (Normal Saline 0.9%) 1,000 mls @ 100 mls/hr IV .Q10H [facility] Last Admin: 03/27/20 14:19 Dose: Not Given Documented by: Sodium Chloride (Normal Saline 0.9%) 500 mls @ 0 mls/hr IV Q24H PRN PRN Reason: TKO RATE Acetaminophen (Ofirmev) 100 mls @ 400 mls/hr IV Q6HR PRN PRN Reason: PAIN Last Infusion: 03/27/20 08:14 Dose: Infused Documented by: Ketorolac Tromethamine (Ketorolac 15 Mg/Ml Vial) 15 mg IVP Q6HR PRN PRN Reason: PAIN Stop: 03/31/20 13:46 Last Admin: 03/27/20 12:01 Dose: 15 mg Documented by: Lactulose (Lactulose 10 Gm /15 Ml Udc) 10 gm PO DAILY [facility] Last Admin: 03/27/20 09:28 Dose: 10 gm Documented by: Ondansetron HCl (Ondansetron 4 Mg/2 Ml Vial) 4 mg IVP Q6HR PRN PRN Reason: Nausea / Vomiting Pantoprazole Sodium (Pantoprazole 40 Mg Vial) 40 mg IVP QDAC [facility] Last Admin: 03/27/20 06:18 Dose: 40 mg Documented by: Sodium Chloride (Sodium Chloride Flush 0.9% 10 Ml Syringe) 10 ml IVP PRN PRN PRN Reason: NEEDED PER PROVIDER ORDERS Last Admin: 03/27/20 06:18 Dose: 10 ml Documented by: Sodium Chloride (Sodium Chloride Flush 0.9% 10 Ml Syringe) 10 ml IVP 0100,0900,1700 [facility] Last Admin: 03/27/20 09:28 Dose: 10 ml Documented by: Sodium Chloride (Sodium Chloride Flush 0.9% 10 Ml Syringe) 20 ml IVP PRN PRN PRN Reason: After Blood Draw Last Admin: 03/26/20 06:30 Dose: 20 ml Documented by: Throat Lozenges (Benzocaine/Menthol Lozenge) 1 lozenge MM Q2HR PRN PRN Reason: Throat pain Last Admin: 03/26/20 20:30 Dose: 1 lozenge Documented by: Gabapentin [Neurontin] 100 - 200 mg PO QPM 02/26/20 Apixaban [Eliquis] 5 mg PO BID 03/25/20 Losartan Potassium 25 mg PO DAILY 03/25/20 Metoprolol Succinate [Toprol Xl] 50 mg PO DAILY 03/25/20 Spironolactone [Aldactone] 25 mg PO DAILY 03/25/20 Objective - Vital Signs/Intake & Output Reviewed Vital Signs: Yes Vital Signs: Vital Signs x48h Temp Pulse Resp BP Pulse Ox 03/27/20 06:00 88 16 142/66 H 98 03/27/20 05:00 84 12 140/57 H 97 03/27/20 04:00 67 18 125/62 99 03/27/20 03:00 73 14 108/49 L 98 03/27/20 02:00 71 16 127/69 98 03/27/20 01:11 81 13 111/59 L 97 03/27/20 00:00 36.7 C 85 12 120/53 L 96 Intake & Output: Intake & Output 03/24/20 03/25/20 03/26/20 03/27/20 23:59 23:59 23:59 23:59 Intake Total 30 2796.666 1683.333 Output Total 340 1197 Balance -310 2966.399 1836.333 - Objective General Appearance: positive: No acute distress, Alert Eyes Bilateral: positive: Normal inspection, Conjunctivae nml ENT: positive: ENT inspection nml Neck: positive: Nml inspection Respiratory: positive: No respiratory distress. negative: Wheezes, Rales Cardiovascular: positive: Regular rate & rhythm, No murmur. negative: [place] hycardia, Systolic murmur Abdomen: positive: Non-tender, No distention, Abnml bowel sounds (Hypoactive bowel sounds.), Other (Dressing is in place.). negative: Tenderness, Guarding, Rebound Skin: positive: Warm, Dry Extremities: positive: No pedal edema Neurologic/Psychiatric: positive: Motor nml. negative: Disoriented to person, Disoriented to place - Lab Results Fish Bones: 03/27/20 04:13 03/27/20 04:13 Other Labs: Lab Results x24hrs 03/27/20 03/27/20 03/26/20 Range/Units 04:13 04:13 04:44 WBC 6.0 (4.8-10.8) x10^3/uL RBC 2.93 L (4.70-6.10) 10^6/uL Hgb 9.3 L (14.0-18.0) g/dL Hct 28.8 L (42.0-52.0) % MCV 98.3 H (80.0-94.0) fL MCH 31.7 H (27.0-31.0) pg MCHC 32.3 (32.0-36.0) g/dL RDW 13.3 (12.0-15.0) % Plt Count 83 L (130-450) 10^3/uL MPV 11.1 (7.4-11.4) fL Neut # (Auto) 4.1 (1.5-6.6) 10^3/uL Lymph # (Auto) 1.3 L (1.5-3.5) 10^3/uL [place] # (Auto) 0.5 (0.0-1.0) 10^3/uL Eos # (Auto) 0.1 (0.0-0.7) 10^3/uL Baso # (Auto) 0.0 (0.0-0.1) 10^3/uL Absolute Nucleated RBC 0.00 x10^3/uL Nucleated RBC % 0.0 /100WBC Sodium 138 (135-145) mmol/L Potassium 3.9 (3.5-5.0) mmol/L Chloride 108 (101-111) mmol/L Carbon Dioxide 26 (21-32) mmol/L Anion Gap 4.0 L (6-13) BUN 19 (6-20) mg/dL Creatinine 0.8 (0.6-1.2) mg/dL Estimated GFR (MDRD) 94 (>89) Glucose 107 H (70-100) mg/dL Calcium 8.1 L (8.5-10.3) mg/dL Magnesium 2.1 (1.7-2.8) mg/dL Albumin 2.7 L (3.2-5.5) g/dL Assessment/Plan - Problem List (1) Small bowel obstruction Impression: He is postop day 2 now for an expiratory laparotomy and small bowel resection. He is tolerating a clear liquid diet. Still has not had return of bowel function at this point in time. We will continue with clear liquid diet as tolerated. Continue with current pain regimen and antiemetics. Antibiotics have been discontinued given his normal white count and lack of fever. Appreciate general surgery input. (2) Ischemia, bowel Impression: He is status post small bowel resection for ischemic bowel secondary to the internal hernia and obstruction. Management as mentioned above. (3) Atrial flutter Impression: He remains rate controlled. We will resume his home metoprolol now that he is taking p.o. We will resume Eliquis once okay with general surgery. Qualifiers: Atrial flutter type: unspecified Qualified Code(s): I48.92 - Unspecified atrial flutter (4) Cardiomyopathy Impression: Stable and not in exacerbation. We have resumed his home metoprolol and losartan. We will look to resume his spironolactone over next 24 hours as his oral intake increases. (5) Presence of cardiac pacemaker Impression: This is in place due to history of high-grade AV block causing syncope. We will continue to monitor on telemetry.
[2020-03-27] MEDS: ACETAMINOPHEN 1,000 MG/100 ML 100 ML IV PRN (07:59)
[2020-03-27] MEDS ORDERED: LACTULOSE 10 GM /15 ML UDC PO SCH (09:00)
[2020-03-27] MEDS: SODIUM CHLORIDE FLUSH 0.9% 10 ML SYRINGE IVP SCH ×3 (09:28→20:55)
[2020-03-27] MEDS ORDERED: DIATRIZOATE MEGLU/DIATRIZO SOD 30 ML BOTTLE PO ONE (09:59)
[2020-03-27] MEDS: BISACODYL 10 MG SUPP PR SCH (11:34)
[2020-03-27] MEDS: KETOROLAC 15 MG/ML VIAL IVP PRN (12:01)
--- NOTE | 2020-03-27 12:31 | PHARMACY PROGRESS NOTE ---
- Best Possible Medication History Admit Date and Time: 03/25/20 1356 Processed by: Pharmacy Medication History completed: Yes Patient Interview: Completed Secondary Source(s): Prescription bottles, Pharmacy records, Insurance records (PATIENT INTERVIEWED BY PHARMACY. PATIENT BROUGHT RX BOTTLES. MED REC COMPLETED USING INSURANCE AND RX BOTTLES ) As the person ultimately responsible for medication therapy, providers are able to order a medication from an existing home medication list in [facility] via the "Reconcile Routine" prior to Confirmation of that medication by net application support specialist. Such practice is discouraged except when the physician, in their clinical judgment, deems that a medical need exists for a medication without regard to previous use.
--- NOTE | 2020-03-27 13:32 | PROVIDER PROGRESS NOTE ---
Subjective - General Admit Date: 03/25/20 Procedure Date: 03/25/20 Post Op Days: 2 Procedure Performed: Laparotomy with small bowel resection - Review of Systems Wound/Incisions: positive: Dressing dry and intact General: positive: Weakness, Fatigue HEENT: positive: No symptoms Cardiovascular: positive: No symptoms Gastrointestinal: positive: Other (Thirsty). negative: Nausea, Vomiting Genitourinary: positive: Other (Cabral in place) - Other Other Information/Narrative: Mr. Crow is feeling a little better. He reports his is very sleepy but his pain is well controlled. No flatus or bowel movement. No nausea Objective - Patient Data Vital Signs: Vital Signs x48h Temp Pulse Resp BP Pulse Ox 03/27/20 12:00 36.9 C 87 13 140/61 H 95 03/27/20 11:00 84 11 L 138/56 H 96 03/27/20 10:00 79 17 141/62 H 94 03/27/20 09:00 89 13 142/59 H 96 03/27/20 08:00 90 14 151/63 H 99 03/27/20 07:00 87 13 139/66 H 97 03/27/20 06:00 88 16 142/66 H 98 Weight: Weight 03/25/20 03/26/20 03/27/20 23:59 23:59 23:59 Weight (kg) 70.307 kg 73 kg 73.5 kg Intake & Output: Intake and Output Totals x24h 03/25/20 03/26/20 03/27/20 23:59 23:59 23:59 Intake Total 30 2796.666 3223.333 Output Total 340 1197 650 Balance -310 8670.226 0833.333 - Lab Results Lab Results: 03/27/20 04:13 03/27/20 04:13 Other Lab Results: Lab Results x24hrs 03/27/20 03/27/20 Range/Units 04:13 04:13 WBC 6.0 (4.8-10.8) x10^3/uL RBC 2.93 L (4.70-6.10) 10^6/uL Hgb 9.3 L (14.0-18.0) g/dL Hct 28.8 L (42.0-52.0) % MCV 98.3 H (80.0-94.0) fL MCH 31.7 H (27.0-31.0) pg MCHC 32.3 (32.0-36.0) g/dL RDW 13.3 (12.0-15.0) % Plt Count 83 L (130-450) 10^3/uL MPV 11.1 (7.4-11.4) fL Neut # (Auto) 4.1 (1.5-6.6) 10^3/uL Lymph # (Auto) 1.3 L (1.5-3.5) 10^3/uL [place] # (Auto) 0.5 (0.0-1.0) 10^3/uL Eos # (Auto) 0.1 (0.0-0.7) 10^3/uL Baso # (Auto) 0.0 (0.0-0.1) 10^3/uL Absolute Nucleated RBC 0.00 x10^3/uL Nucleated RBC % 0.0 /100WBC Sodium 138 (135-145) mmol/L Potassium 3.9 (3.5-5.0) mmol/L Chloride 108 (101-111) mmol/L Carbon Dioxide 26 (21-32) mmol/L Anion Gap 4.0 L (6-13) BUN 19 (6-20) mg/dL Creatinine 0.8 (0.6-1.2) mg/dL Estimated GFR (MDRD) 94 (>89) Glucose 107 H (70-100) mg/dL Calcium 8.1 L (8.5-10.3) mg/dL Magnesium 2.1 (1.7-2.8) mg/dL - Current Medications Current Medications: Current Medications Generic Name Dose Route Start Last Admin Trade Name Freq PRN Reason Stop Dose Admin Bisacodyl 10 mg 03/27/20 10:00 03/27/20 11:34 Bisacodyl 10 Mg Supp [place] 10 mg DAILY GILDA Administration Hydromorphone HCl 1 mg 03/26/20 13:47 03/26/20 23:59 Hydromorphone 1 Mg/Ml Carpuject IVP 1 mg Q2HR PRN Administration PAIN >8 Sodium Chloride 1,000 mls @ 100 mls/hr 03/25/20 14:00 03/27/20 13:08 Normal Saline 0.9% IV 100 mls/hr .Q10H GILDA Administration Piperacillin Sod/Tazobactam 100 mls @ 25 mls/hr 03/26/20 03:00 03/27/20 12:00 Sod 3.375 gm/ Sodium Chloride IV 25 mls/hr Q8H GILDA Administration Acetaminophen 100 mls @ 400 mls/hr 03/26/20 16:53 03/27/20 08:14 Ofirmev IV Infused Q6HR PRN Infusion PAIN Ketorolac Tromethamine 15 mg 03/26/20 13:47 03/27/20 12:01 Ketorolac 15 Mg/Ml Vial IVP 03/31/20 13:46 15 mg Q6HR PRN Administration PAIN Lactulose 10 gm 03/27/20 09:00 03/27/20 09:28 Lactulose 10 Gm /15 Ml Udc PO 10 gm DAILY GILDA Administration Pantoprazole Sodium 40 mg 03/26/20 07:00 03/27/20 06:18 Pantoprazole 40 Mg Vial IVP 40 mg QDAC GILDA Administration Sodium Chloride 10 ml 03/25/20 13:52 03/27/20 06:18 Sodium Chloride Flush 0.9% 10 Ml Syringe IVP 10 ml PRN PRN Administration NEEDED PER PROVIDER ORDERS Sodium Chloride 10 ml 03/25/20 17:00 03/27/20 09:28 Sodium Chloride Flush 0.9% 10 Ml Syringe IVP 10 ml 0100,0900,1700 GILDA Administration Sodium Chloride 20 ml 03/26/20 03:32 03/26/20 06:30 Sodium Chloride Flush 0.9% 10 Ml Syringe IVP 20 ml PRN PRN Administration After Blood Draw Throat Lozenges 1 lozenge 03/26/20 03:33 03/26/20 20:30 Benzocaine/Menthol Lozenge MM 1 lozenge Q2HR PRN Administration Throat pain - Physical Exam Wound/Incisions: positive: Healing well General Appearance: positive: No acute distress Eyes Bilateral: positive: Normal inspection, PERRL, EOMI ENT: positive: Pharynx nml, No signs of dehydration Neck: positive: Nml inspection Respiratory: positive: Chest non-tender, No respiratory distress, Breath sounds nml Cardiovascular: positive: Regular rate & rhythm, No murmur Abdomen: positive: Tenderness, Abnml bowel sounds (hyoactive), Other (Wound is clean. Packing remains in place in the midline) ABX Reporting Has patient been on IV antibiotics over the past 48 hours?: Yes Impression/Plan - Problem List Problem List: 1. continue with pain control and supportive measures 2. Continue cathartics and add suppositories to treat heavy stool burden 3. Agree with all other excellent care. 4. Continue clear liquids until more evidence of bowel function is apparent
[2020-03-27] MEDS: GABAPENTIN 100 MG CAPSULE PO SCH (20:11)
[2020-03-27] MEDS: ONDANSETRON 4 MG/2 ML VIAL IVP PRN (20:54)
[2020-03-27] MEDS: HYDROmorphone 1 MG/ML CARPUJECT IVP PRN (20:55)
[2020-03-28] MEDS: ONDANSETRON 4 MG/2 ML VIAL IVP PRN ×3 (03:12→21:31)
[2020-03-28] MEDS: HYDROmorphone 1 MG/ML CARPUJECT IVP PRN ×2 (03:27→21:31)
[2020-03-28 05:09] LABS: BASOPHILS % (AUTO) 0.3 %; EOSINOPHILS # (AUTO) 0.3 10^3/uL (0.0-0.7); EOSINOPHILS % (AUTO) 4.3 %; HGB - HEMOGLOBIN 9.7 g/dL (14.0-18.0); LYMPHOCYTES # (AUTO) 1.2 10^3/uL (1.5-3.5); LYMPHOCYTES % (AUTO) 20.6 %; MEAN CORPUSCULAR HEMOGLOBIN 33.2 pg (27.0-31.0); MEAN CORPUSCULAR HGB CONC 34.3 g/dL (32.0-36.0); MEAN CORPUSCULAR VOLUME 96.9 fL (80.0-94.0); MEAN PLATELET VOLUME 10.4 fL (7.4-11.4); MONOCYTES # (AUTO) 0.4 10^3/uL (0.0-1.0); MONOCYTES % (AUTO) 7.5 %; NEUTROPHILS # (AUTO) 3.9 10^3/uL (1.5-6.6); NEUTROPHILS % (AUTO) 67.1 %; PLT - PLATELET COUNT 89 10^3/uL (130-450); RED BLOOD COUNT 2.92 10^6/uL (4.70-6.10); RED CELL DISTRIBUTION WIDTH 12.9 % (12.0-15.0); WHITE BLOOD COUNT 5.9 x10^3/uL (4.8-10.8)
[2020-03-28 05:20] LABS: CALCIUM 8.1 mg/dL (8.5-10.3); CREATININE 0.5 mg/dL (0.6-1.2); MAGNESIUM 1.8 mg/dL (1.7-2.8)
[2020-03-28] MEDS: SODIUM CHLORIDE FLUSH 0.9% 10 ML SYRINGE IVP SCH ×3 (06:59→20:19)
[2020-03-28] MEDS: PANTOPRAZOLE 40 MG VIAL IVP SCH (06:59)
[2020-03-28] MEDS ORDERED: POTASSIUM CHLORIDE 20 MEQ TABLET PO ONE (07:32)
[2020-03-28] MEDS: LOSARTAN 50 MG TABLET PO SCH (08:57)
[2020-03-28] MEDS: METOPROLOL SUCCINATE 50 MG TABLET PO SCH (08:57)
[2020-03-28] MEDS: SODIUM CHLORIDE 0.9% 1,000 ML IV SCH ×2 (08:58→21:34)
[2020-03-28] MEDS: ACETAMINOPHEN 1,000 MG/100 ML 100 ML IV PRN (09:03)
[2020-03-28] MEDS: BISACODYL 10 MG SUPP PR SCH (11:45)
[2020-03-28] MEDS: MINERAL OIL 473 ML BOTTLE PO SCH ×2 (12:00→21:31)
[2020-03-28] MEDS: LACTULOSE 10 GM /15 ML UDC PO SCH ×2 (12:17→21:13)
[2020-03-28] MEDS: METOCLOPRAMIDE 10 MG/2 ML VIAL IVP SCH ×3 (12:17→23:30)
--- NOTE | 2020-03-28 14:23 | PROVIDER PROGRESS NOTE ---
Subjective - Prog Note Date Prog Note Date: 03/28/20 - Subjective Subjective: Reports feeling fatigued. States his pain is controlled. Has a bit of nausea this morning but no vomiting. Still not had a bowel movement. He is not passing gas. He has not gotten out of bed this morning yet. Current Medications - Current Medications Current Medications: Active Medications Bisacodyl (Bisacodyl 10 Mg Supp) 10 mg NM DAILY [facility] Last Admin: 03/28/20 11:45 Dose: 10 mg Documented by: Gabapentin (Gabapentin 100 Mg Capsule) 100 mg PO QPM [facility] Last Admin: 03/27/20 20:11 Dose: 100 mg Documented by: Hydromorphone HCl (Hydromorphone 1 Mg/Ml Carpuject) 1 mg IVP Q2HR PRN PRN Reason: PAIN >8 Last Admin: 03/28/20 03:27 Dose: 1 mg Documented by: Sodium Chloride (Normal Saline 0.9%) 1,000 mls @ 100 mls/hr IV .Q10H [facility] Last Admin: 03/28/20 08:58 Dose: 100 mls/hr Documented by: Sodium Chloride (Normal Saline 0.9%) 500 mls @ 0 mls/hr IV Q24H PRN PRN Reason: TKO RATE Acetaminophen (Ofirmev) 100 mls @ 400 mls/hr IV Q6HR PRN PRN Reason: PAIN Last Infusion: 03/28/20 09:30 Dose: Infused Documented by: Ketorolac Tromethamine (Ketorolac 15 Mg/Ml Vial) 15 mg IVP Q6HR PRN PRN Reason: PAIN Stop: 03/31/20 13:46 Last Admin: 03/27/20 12:01 Dose: 15 mg Documented by: Lactulose (Lactulose 10 Gm /15 Ml Udc) 10 gm PO BID [facility] Last Admin: 03/28/20 12:17 Dose: 10 gm Documented by: Losartan Potassium (Losartan 50 Mg Tablet) 25 mg PO DAILY [facility] Last Admin: 03/28/20 08:57 Dose: 25 mg Documented by: Metoclopramide HCl (Metoclopramide 10 Mg/2 Ml Vial) 5 mg IVP Q6HR [facility] Last Admin: 03/28/20 12:17 Dose: 5 mg Documented by: Metoprolol Succinate (Metoprolol Succinate 50 Mg Tablet) 50 mg PO DAILY [facility] Last Admin: 03/28/20 08:57 Dose: 50 mg Documented by: Mineral Oil (Mineral Oil 473 Ml Bottle) 30 ml PO BID [facility] Ondansetron HCl (Ondansetron 4 Mg/2 Ml Vial) 4 mg IVP Q6HR PRN PRN Reason: Nausea / Vomiting Last Admin: 03/28/20 03:12 Dose: 4 mg Documented by: Pantoprazole Sodium (Pantoprazole 40 Mg Vial) 40 mg IVP QDAC [facility] Last Admin: 03/28/20 06:59 Dose: 40 mg Documented by: Sodium Chloride (Sodium Chloride Flush 0.9% 10 Ml Syringe) 10 ml IVP PRN PRN PRN Reason: NEEDED PER PROVIDER ORDERS Last Admin: 03/27/20 06:18 Dose: 10 ml Documented by: Sodium Chloride (Sodium Chloride Flush 0.9% 10 Ml Syringe) 10 ml IVP 0100,0900,1700 [facility] Last Admin: 03/28/20 06:59 Dose: 10 ml Documented by: Sodium Chloride (Sodium Chloride Flush 0.9% 10 Ml Syringe) 20 ml IVP PRN PRN PRN Reason: After Blood Draw Last Admin: 03/26/20 06:30 Dose: 20 ml Documented by: Throat Lozenges (Benzocaine/Menthol Lozenge) 1 lozenge MM Q2HR PRN PRN Reason: Throat pain Last Admin: 03/26/20 20:30 Dose: 1 lozenge Documented by: Gabapentin [Neurontin] 100 - 200 mg PO QPM 02/26/20 Apixaban [Eliquis] 5 mg PO BID 03/25/20 Losartan Potassium 25 mg PO DAILY 03/25/20 Metoprolol Succinate [Toprol Xl] 50 mg PO DAILY 03/25/20 Spironolactone [Aldactone] 25 mg PO DAILY 03/25/20 Objective - Vital Signs/Intake & Output Reviewed Vital Signs: Yes Vital Signs: Vital Signs x48h Temp Pulse Resp BP BP Pulse Ox 03/28/20 12:06 36.7 C 90 15 140/84 H 97 03/28/20 09:00 36.4 C L 82 16 128/65 98 Intake & Output: Intake & Output 03/25/20 03/26/20 03/27/20 03/28/20 23:59 23:59 23:59 23:59 Intake Total 30 2796.666 4465.000 2024 Output Total 340 1197 1250 180 Balance -310 4468.032 7288.000 1845 - Objective General Appearance: positive: No acute distress, Alert Eyes Bilateral: positive: Normal inspection, Conjunctivae nml ENT: positive: ENT inspection nml Neck: positive: Nml inspection Respiratory: positive: No respiratory distress. negative: Wheezes, Rales Cardiovascular: positive: Regular rate & rhythm, No murmur. negative: Tachycardia Abdomen: positive: Non-tender, No distention, Abnml bowel sounds (Hypoactive.). negative: Tenderness, Guarding, Rebound Skin: positive: Warm, Dry Extremities: positive: Full ROM, No pedal edema - Lab Results Fish Bones: 03/28/20 04:46 03/28/20 04:46 Other Labs: Lab Results x24hrs 03/28/20 03/28/20 03/26/20 Range/Units 04:46 04:46 17:41 WBC 5.9 (4.8-10.8) x10^3/uL RBC 2.92 L (4.70-6.10) 10^6/uL Hgb 9.7 L (14.0-18.0) g/dL Hct 28.3 L (42.0-52.0) % MCV 96.9 H (80.0-94.0) fL MCH 33.2 H (27.0-31.0) pg MCHC 34.3 (32.0-36.0) g/dL RDW 12.9 (12.0-15.0) % Plt Count 89 L (130-450) 10^3/uL MPV 10.4 (7.4-11.4) fL Neut # (Auto) 3.9 (1.5-6.6) 10^3/uL Lymph # (Auto) 1.2 L (1.5-3.5) 10^3/uL [place] # (Auto) 0.4 (0.0-1.0) 10^3/uL Eos # (Auto) 0.3 (0.0-0.7) 10^3/uL Baso # (Auto) 0.0 (0.0-0.1) 10^3/uL Absolute Nucleated RBC 0.00 x10^3/uL Nucleated RBC % 0.0 /100WBC Sodium 137 (135-145) mmol/L Potassium 3.4 L (3.5-5.0) mmol/L Chloride 109 (101-111) mmol/L Carbon Dioxide 23 (21-32) mmol/L Anion Gap 5.0 L (6-13) BUN 14 (6-20) mg/dL Creatinine 0.5 L (0.6-1.2) mg/dL Estimated GFR (MDRD) 163 (>89) Glucose 114 H (70-100) mg/dL POC Whole Bld Glucose 102 H (70 - 100) mg/dL Calcium 8.1 L (8.5-10.3) mg/dL Magnesium 1.8 (1.7-2.8) mg/dL Assessment/Plan - Problem List (1) Small bowel obstruction Impression: He appears to be slowly improving. Although he has not had full return of bowel function, he is tolerating clear liquid diet and I believe it is a matter of time before he will have a bowel movement. We will continue to clear liquid diet as tolerated. Continue his current bowel regimen that has been initiated by general surgery. Continue his current antiemetics. Appreciate general surgery input. (2) Ischemia, bowel Impression: Secondary to internal hernia and obstruction. He is status post small bowel resection and is postop day 3. Management as mentioned above for the bowel obstruction. (3) Atrial flutter Impression: Controlled on his home metoprolol which has been resumed. We will resume his Eliquis today. Qualifiers: Atrial flutter type: unspecified Qualified Code(s): I48.92 - Unspecified atrial flutter (4) Cardiomyopathy Impression: Stable. Resume his home medications except for the spironolactone. We will resume this once his bowel obstruction has resolved. (5) Presence of cardiac pacemaker Impression: He has a history of pacemaker due to high-grade AV block. We will continue to monitor on telemetry.
[2020-03-28] MEDS ORDERED: ACETAMINOPHEN 500 MG TABLET PO PRN (15:06)
--- NOTE | 2020-03-28 20:14 | PROVIDER PROGRESS NOTE ---
Subjective - General Admit Date: 03/25/20 Procedure Date: 03/25/20 Post Op Days: 3 Procedure Performed: Laparotomy with small bowel resection - Review of Systems Wound/Incisions: positive: Healing well General: positive: Weakness, Fatigue HEENT: positive: No symptoms Cardiovascular: positive: No symptoms Gastrointestinal: positive: Other (Thirsty). negative: Nausea, Vomiting Genitourinary: positive: Other (Cabral in place) - Other Other Information/Narrative: Mr. Crow has struggled with nausea today. Still has not had a bowel movement but had "explosive flatus" this afternoon. Vomited x 1 today but then ate his clear liquid supper. Reports pain is controlled. Objective - Patient Data Reviewed Vital Signs: Yes Vital Signs: Vital Signs x48h Temp Pulse Resp BP Pulse Ox 03/28/20 16:00 36.9 C 75 12 119/64 96 Weight: Weight 03/26/20 03/27/20 03/28/20 23:59 23:59 23:59 Weight (kg) 73 kg 73.5 kg 76 kg Intake & Output: Intake and Output Totals x24h 03/26/20 03/27/20 03/28/20 23:59 23:59 23:59 Intake Total 2796.666 4465.000 2285 Output Total 1197 1250 930 Balance 8222.141 8019.000 1355 - Lab Results Lab Results: 03/28/20 04:46 03/28/20 04:46 Other Lab Results: Lab Results x24hrs 03/28/20 03/28/20 03/26/20 Range/Units 04:46 04:46 17:41 WBC 5.9 (4.8-10.8) x10^3/uL RBC 2.92 L (4.70-6.10) 10^6/uL Hgb 9.7 L (14.0-18.0) g/dL Hct 28.3 L (42.0-52.0) % MCV 96.9 H (80.0-94.0) fL MCH 33.2 H (27.0-31.0) pg MCHC 34.3 (32.0-36.0) g/dL RDW 12.9 (12.0-15.0) % Plt Count 89 L (130-450) 10^3/uL MPV 10.4 (7.4-11.4) fL Neut # (Auto) 3.9 (1.5-6.6) 10^3/uL Lymph # (Auto) 1.2 L (1.5-3.5) 10^3/uL [place] # (Auto) 0.4 (0.0-1.0) 10^3/uL Eos # (Auto) 0.3 (0.0-0.7) 10^3/uL Baso # (Auto) 0.0 (0.0-0.1) 10^3/uL Absolute Nucleated RBC 0.00 x10^3/uL Nucleated RBC % 0.0 /100WBC Sodium 137 (135-145) mmol/L Potassium 3.4 L (3.5-5.0) mmol/L Chloride 109 (101-111) mmol/L Carbon Dioxide 23 (21-32) mmol/L Anion Gap 5.0 L (6-13) BUN 14 (6-20) mg/dL Creatinine 0.5 L (0.6-1.2) mg/dL Estimated GFR (MDRD) 163 (>89) Glucose 114 H (70-100) mg/dL POC Whole Bld Glucose 102 H (70 - 100) mg/dL Calcium 8.1 L (8.5-10.3) mg/dL Magnesium 1.8 (1.7-2.8) mg/dL - Current Medications Current Medications: Current Medications Generic Name Dose Route Start Last Admin Trade Name Freq PRN Reason Stop Dose Admin Bisacodyl 10 mg 03/27/20 10:00 03/28/20 11:45 Bisacodyl 10 Mg Supp [place] 10 mg DAILY GILDA Administration Gabapentin 100 mg 03/27/20 21:00 03/27/20 20:11 Gabapentin 100 Mg Capsule PO 100 mg QPM GILDA Administration Hydromorphone HCl 1 mg 03/26/20 13:47 03/28/20 03:27 Hydromorphone 1 Mg/Ml Carpuject IVP 1 mg Q2HR PRN Administration PAIN >8 Sodium Chloride 1,000 mls @ 100 mls/hr 03/25/20 14:00 03/28/20 08:58 Normal Saline 0.9% IV 100 mls/hr .Q10H GILDA Administration Lactulose 10 gm 03/28/20 12:00 03/28/20 12:17 Lactulose 10 Gm /15 Ml Udc PO 10 gm BID GILDA Administration Losartan Potassium 25 mg 03/28/20 09:00 03/28/20 08:57 Losartan 50 Mg Tablet PO 25 mg DAILY GILDA Administration Metoclopramide HCl 5 mg 03/28/20 12:00 03/28/20 17:40 Metoclopramide 10 Mg/2 Ml Vial IVP 5 mg Q6HR GILDA Administration Metoprolol Succinate 50 mg 03/28/20 09:00 03/28/20 08:57 Metoprolol Succinate 50 Mg Tablet PO 50 mg DAILY GILDA Administration Mineral Oil 30 ml 03/28/20 12:00 03/28/20 12:00 Mineral Oil 473 Ml Bottle PO Not Given BID GILDA Ondansetron HCl 4 mg 03/25/20 13:52 03/28/20 14:43 Ondansetron 4 Mg/2 Ml Vial IVP 4 mg Q6HR PRN Administration Nausea / Vomiting Pantoprazole Sodium 40 mg 03/26/20 07:00 03/28/20 06:59 Pantoprazole 40 Mg Vial IVP 40 mg QDAC GILDA Administration Sodium Chloride 10 ml 03/25/20 13:52 03/27/20 06:18 Sodium Chloride Flush 0.9% 10 Ml Syringe IVP 10 ml PRN PRN Administration NEEDED PER PROVIDER ORDERS Sodium Chloride 10 ml 03/25/20 17:00 03/28/20 14:42 Sodium Chloride Flush 0.9% 10 Ml Syringe IVP 10 ml 0100,0900,1700 GILDA Administration Sodium Chloride 20 ml 03/26/20 03:32 03/26/20 06:30 Sodium Chloride Flush 0.9% 10 Ml Syringe IVP 20 ml PRN PRN Administration After Blood Draw Throat Lozenges 1 lozenge 03/26/20 03:33 03/26/20 20:30 Benzocaine/Menthol Lozenge MM 1 lozenge Q2HR PRN Administration Throat pain - Physical Exam Wound/Incisions: positive: Healing well General Appearance: positive: No acute distress, Alert, Lethargic Eyes Bilateral: positive: Normal inspection, PERRL, EOMI ENT: positive: Pharynx nml Neck: positive: Nml inspection Respiratory: positive: No respiratory distress, Breath sounds nml Cardiovascular: positive: Regular rate & rhythm Abdomen: positive: Abnml bowel sounds (Hypoactive bowel tones). negative: Guarding, Rebound Skin: positive: Color nml, No rash Neurologic/Psychiatric: positive: Oriented x3 Impression/Plan - Problem List Problem List: Increase lactulose does and start Reglan Add mineral oil If no results by morning, will try an enema with soap suds and mineral oil as well.
[2020-03-28] MEDS: GABAPENTIN 100 MG CAPSULE PO SCH (21:13)
[2020-03-28] MEDS: APIXABAN 5 MG TABLET PO SCH (21:13)
[2020-03-29] MEDS: ONDANSETRON 4 MG/2 ML VIAL IVP PRN (02:20)
[2020-03-29] MEDS: SODIUM CHLORIDE FLUSH 0.9% 10 ML SYRINGE IVP SCH ×4 (02:20→23:50)
[2020-03-29 05:00] LABS: BASOPHILS % (AUTO) 0.4 %; EOSINOPHILS # (AUTO) 0.2 10^3/uL (0.0-0.7); EOSINOPHILS % (AUTO) 3.8 %; HGB - HEMOGLOBIN 10.2 g/dL (14.0-18.0); LYMPHOCYTES % (AUTO) 18.8 %; MEAN CORPUSCULAR HEMOGLOBIN 32.4 pg (27.0-31.0); MEAN CORPUSCULAR HGB CONC 33.8 g/dL (32.0-36.0); MEAN CORPUSCULAR VOLUME 95.9 fL (80.0-94.0); MEAN PLATELET VOLUME 10.7 fL (7.4-11.4); MONOCYTES # (AUTO) 0.4 10^3/uL (0.0-1.0); MONOCYTES % (AUTO) 7.8 %; NEUTROPHILS # (AUTO) 3.8 10^3/uL (1.5-6.6); PLT - PLATELET COUNT 107 10^3/uL (130-450); RED BLOOD COUNT 3.15 10^6/uL (4.70-6.10); RED CELL DISTRIBUTION WIDTH 12.7 % (12.0-15.0); WHITE BLOOD COUNT 5.5 x10^3/uL (4.8-10.8)
[2020-03-29 05:05] LABS: CALCIUM 8.6 mg/dL (8.5-10.3); CREATININE 0.6 mg/dL (0.6-1.2)
[2020-03-29] MEDS: METOCLOPRAMIDE 10 MG/2 ML VIAL IVP SCH ×2 (06:27→11:57)
[2020-03-29] MEDS: PANTOPRAZOLE 40 MG VIAL IVP SCH (06:27)
[2020-03-29] MEDS: SODIUM CHLORIDE 0.9% 1,000 ML IV SCH ×2 (08:03→23:49)
[2020-03-29] MEDS ORDERED: POTASSIUM CHLORIDE 20 MEQ TABLET PO ONE (08:43)
[2020-03-29] MEDS ORDERED: MINERAL OIL ENEMA 133 ML BOTTLE RC SCH (09:00)
[2020-03-29] MEDS: METOPROLOL SUCCINATE 50 MG TABLET PO SCH (09:06)
[2020-03-29] MEDS: APIXABAN 5 MG TABLET PO SCH ×2 (09:06→20:58)
[2020-03-29] MEDS: LACTULOSE 10 GM /15 ML UDC PO SCH ×2 (09:07→20:58)
[2020-03-29] MEDS: LOSARTAN 50 MG TABLET PO SCH (09:07)
[2020-03-29] MEDS: MINERAL OIL 473 ML BOTTLE PO SCH ×2 (09:08→20:59)
[2020-03-29] MEDS: BISACODYL 10 MG SUPP PR SCH (09:09)
[2020-03-29] MEDS: POTASSIUM CHLOR 10 MEQ/100 ML 10 MEQ/100 ML BAG IV SCH ×4 (11:56→15:55)
--- NOTE | 2020-03-29 15:26 | PROVIDER PROGRESS NOTE ---
Subjective - Prog Note Date Prog Note Date: 03/29/20 - Subjective Subjective: He denies all pain but states he felt nauseous and had a little vomiting this morning. Still has not passed gas and has not had a bowel movement. Current Medications - Current Medications Current Medications: Active Medications Acetaminophen (Acetaminophen 500 Mg Tablet) 500 mg PO Q4HR PRN PRN Reason: Pain or Fever > 38C (100.4F) Apixaban (Apixaban 5 Mg Tablet) 5 mg PO BID [facility] Last Admin: 03/29/20 09:06 Dose: 5 mg Documented by: Bisacodyl (Bisacodyl 10 Mg Supp) 10 mg [place] DAILY [facility] Last Admin: 03/29/20 09:09 Dose: Not Given Documented by: Gabapentin (Gabapentin 100 Mg Capsule) 100 mg PO QPM [facility] Last Admin: 03/28/20 21:13 Dose: 100 mg Documented by: Hydromorphone HCl (Hydromorphone 1 Mg/Ml Carpuject) 1 mg IVP Q2HR PRN PRN Reason: PAIN >8 Last Admin: 03/28/20 21:31 Dose: 1 mg Documented by: Sodium Chloride (Normal Saline 0.9%) 1,000 mls @ 100 mls/hr IV .Q10H [facility] Last Infusion: 03/29/20 11:00 Dose: 0 mls/hr Documented by: Sodium Chloride (Normal Saline 0.9%) 500 mls @ 0 mls/hr IV Q24H PRN PRN Reason: TKO RATE Lactulose (Lactulose 10 Gm /15 Ml Udc) 10 gm PO BID [facility] Last Admin: 03/29/20 09:07 Dose: 10 gm Documented by: Losartan Potassium (Losartan 50 Mg Tablet) 25 mg PO DAILY [facility] Last Admin: 03/29/20 09:07 Dose: 25 mg Documented by: Metoclopramide HCl (Metoclopramide 10 Mg/2 Ml Vial) 5 mg IVP Q6HR [facility] Last Admin: 03/29/20 11:57 Dose: 5 mg Documented by: Metoprolol Succinate (Metoprolol Succinate 50 Mg Tablet) 50 mg PO DAILY [facility] Last Admin: 03/29/20 09:06 Dose: 50 mg Documented by: Mineral Oil (Mineral Oil 473 Ml Bottle) 30 ml PO BID [facility] Last Admin: 03/29/20 09:08 Dose: 30 ml Documented by: Ondansetron HCl (Ondansetron 4 Mg/2 Ml Vial) 4 mg IVP Q6HR PRN PRN Reason: Nausea / Vomiting Last Admin: 03/29/20 02:20 Dose: 4 mg Documented by: Pantoprazole Sodium (Pantoprazole 40 Mg Vial) 40 mg IVP QDAC [facility] Last Admin: 03/29/20 06:27 Dose: 40 mg Documented by: Sodium Chloride (Sodium Chloride Flush 0.9% 10 Ml Syringe) 10 ml IVP PRN PRN PRN Reason: NEEDED PER PROVIDER ORDERS Last Admin: 03/27/20 06:18 Dose: 10 ml Documented by: Sodium Chloride (Sodium Chloride Flush 0.9% 10 Ml Syringe) 10 ml IVP 0100,0900,1700 [facility] Last Admin: 03/29/20 09:09 Dose: 10 ml Documented by: Sodium Chloride (Sodium Chloride Flush 0.9% 10 Ml Syringe) 20 ml IVP PRN PRN PRN Reason: After Blood Draw Last Admin: 03/26/20 06:30 Dose: 20 ml Documented by: Throat Lozenges (Benzocaine/Menthol Lozenge) 1 lozenge MM Q2HR PRN PRN Reason: Throat pain Last Admin: 03/26/20 20:30 Dose: 1 lozenge Documented by: Gabapentin [Neurontin] 100 - 200 mg PO QPM 02/26/20 Apixaban [Eliquis] 5 mg PO BID 03/25/20 Losartan Potassium 25 mg PO DAILY 03/25/20 Metoprolol Succinate [Toprol Xl] 50 mg PO DAILY 03/25/20 Spironolactone [Aldactone] 25 mg PO DAILY 03/25/20 Objective - Vital Signs/Intake & Output Reviewed Vital Signs: Yes Vital Signs: Vital Signs x48h Temp Pulse Resp BP Pulse Ox 03/29/20 08:00 37.0 C 83 16 136/60 H 91 L Intake & Output: Intake & Output 03/26/20 03/27/20 03/28/20 03/29/20 23:59 23:59 23:59 23:59 Intake Total 9736.666 4465.000 3285 2328 Output Total 1197 1250 1330 933 Balance 3516.250 9425.000 1955 1395 - Objective General Appearance: positive: No acute distress, Alert Eyes Bilateral: positive: Normal inspection, Conjunctivae nml ENT: positive: ENT inspection nml Neck: positive: Nml inspection Respiratory: positive: No respiratory distress. negative: Wheezes, Rales Cardiovascular: positive: Regular rate & rhythm. negative: Tachycardia, Systolic murmur Abdomen: positive: Non-tender, No distention, Abnml bowel sounds (Hypoactive), Other (Dressing is in place.). negative: Tenderness, Guarding, Rebound Skin: positive: Warm, Dry Extremities: positive: No pedal edema - Lab Results Fish Bones: 03/29/20 04:45 03/29/20 04:45 Other Labs: Lab Results x24hrs 03/29/20 03/29/20 Range/Units 04:45 04:45 WBC 5.5 (4.8-10.8) x10^3/uL RBC 3.15 L (4.70-6.10) 10^6/uL Hgb 10.2 L (14.0-18.0) g/dL Hct 30.2 L (42.0-52.0) % MCV 95.9 H (80.0-94.0) fL MCH 32.4 H (27.0-31.0) pg MCHC 33.8 (32.0-36.0) g/dL RDW 12.7 (12.0-15.0) % Plt Count 107 L (130-450) 10^3/uL MPV 10.7 (7.4-11.4) fL Neut # (Auto) 3.8 (1.5-6.6) 10^3/uL Lymph # (Auto) 1.0 L (1.5-3.5) 10^3/uL [place] # (Auto) 0.4 (0.0-1.0) 10^3/uL Eos # (Auto) 0.2 (0.0-0.7) 10^3/uL Baso # (Auto) 0.0 (0.0-0.1) 10^3/uL Absolute Nucleated RBC 0.00 x10^3/uL Nucleated RBC % 0.0 /100WBC Sodium 136 (135-145) mmol/L Potassium 3.4 L (3.5-5.0) mmol/L Chloride 107 (101-111) mmol/L Carbon Dioxide 24 (21-32) mmol/L Anion Gap 5.0 L (6-13) BUN 12 (6-20) mg/dL Creatinine 0.6 (0.6-1.2) mg/dL Estimated GFR (MDRD) 132 (>89) Glucose 114 H (70-100) mg/dL Calcium 8.6 (8.5-10.3) mg/dL Assessment/Plan - Problem List (1) Small bowel obstruction Impression: He has not yet had positive bowel function and unfortunately had a little vomiting this morning but he overall appears clinically stable. He has no pain and except for the vomiting which appeared to be a little amount, he has been tolerating a clear liquid diet. He has been on a bowel regimen per general surgery and an enema will be administered this morning. At this time, we will likely continue a clear liquid diet as tolerated. If he continues to episodes of vomiting then we will obtain an abdominal film to rule out obstruction. Appreciate general surgery input. (2) Ischemia, bowel Impression: Secondary to an internal hernia. He is status post small bowel resection. Management as mentioned above. (3) Atrial flutter Qualifiers: Atrial flutter type: unspecified Qualified Code(s): I48.92 - Unspecified atrial flutter
[2020-03-29] MEDS ORDERED: METOCLOPRAMIDE 10 MG/2 ML VIAL IVP PRN (15:42)
--- NOTE | 2020-03-29 15:49 | PROVIDER PROGRESS NOTE ---
Subjective - General Admit Date: 03/25/20 Procedure Date: 03/25/20 Post Op Days: 4 Procedure Performed: Laparotomy with small bowel resection - Review of Systems Wound/Incisions: positive: Healing well General: positive: Weakness, Fatigue HEENT: positive: No symptoms Cardiovascular: positive: No symptoms Gastrointestinal: positive: Other (Thirsty). negative: Nausea, Vomiting Genitourinary: positive: Other (Cabral in place) - Other Other Information/Narrative: Denies pain but minimal bowel function. Flatus yesterday. No real results with enema this morning and pharmacy no longer able to accommodate mild of molasses. Nausea at times but continues to drink fluids Objective - Patient Data Vital Signs: Vital Signs x48h Temp Pulse Resp BP Pulse Ox 03/29/20 08:00 37.0 C 83 16 136/60 H 91 L Weight: Weight 03/27/20 03/28/20 03/29/20 23:59 23:59 23:59 Weight (kg) 73.5 kg 76 kg 76.5 kg Intake & Output: Intake and Output Totals x24h 03/27/20 03/28/20 03/29/20 23:59 23:59 23:59 Intake Total 4465.000 3285 2328 Output Total 1250 1330 933 Balance 3215.000 1955 1395 - Lab Results Lab Results: 03/29/20 04:45 03/29/20 04:45 Other Lab Results: Lab Results x24hrs 03/29/20 03/29/20 Range/Units 04:45 04:45 WBC 5.5 (4.8-10.8) x10^3/uL RBC 3.15 L (4.70-6.10) 10^6/uL Hgb 10.2 L (14.0-18.0) g/dL Hct 30.2 L (42.0-52.0) % MCV 95.9 H (80.0-94.0) fL MCH 32.4 H (27.0-31.0) pg MCHC 33.8 (32.0-36.0) g/dL RDW 12.7 (12.0-15.0) % Plt Count 107 L (130-450) 10^3/uL MPV 10.7 (7.4-11.4) fL Neut # (Auto) 3.8 (1.5-6.6) 10^3/uL Lymph # (Auto) 1.0 L (1.5-3.5) 10^3/uL [place] # (Auto) 0.4 (0.0-1.0) 10^3/uL Eos # (Auto) 0.2 (0.0-0.7) 10^3/uL Baso # (Auto) 0.0 (0.0-0.1) 10^3/uL Absolute Nucleated RBC 0.00 x10^3/uL Nucleated RBC % 0.0 /100WBC Sodium 136 (135-145) mmol/L Potassium 3.4 L (3.5-5.0) mmol/L Chloride 107 (101-111) mmol/L Carbon Dioxide 24 (21-32) mmol/L Anion Gap 5.0 L (6-13) BUN 12 (6-20) mg/dL Creatinine 0.6 (0.6-1.2) mg/dL Estimated GFR (MDRD) 132 (>89) Glucose 114 H (70-100) mg/dL Calcium 8.6 (8.5-10.3) mg/dL - Current Medications Current Medications: Current Medications Generic Name Dose Route Start Last Admin Trade Name Freq PRN Reason Stop Dose Admin Apixaban 5 mg 03/28/20 21:00 03/29/20 09:06 Apixaban 5 Mg Tablet PO 5 mg BID GILDA Administration Bisacodyl 10 mg 03/27/20 10:00 03/29/20 09:09 Bisacodyl 10 Mg Supp [place] Not Given DAILY GILDA Gabapentin 100 mg 03/27/20 21:00 03/28/20 21:13 Gabapentin 100 Mg Capsule PO 100 mg QPM GILDA Administration Hydromorphone HCl 1 mg 03/26/20 13:47 03/28/20 21:31 Hydromorphone 1 Mg/Ml Carpuject IVP 1 mg Q2HR PRN Administration PAIN >8 Sodium Chloride 1,000 mls @ 100 mls/hr 03/25/20 14:00 03/29/20 11:00 Normal Saline 0.9% IV 0 mls/hr .Q10H GILDA Infusion Lactulose 10 gm 03/28/20 12:00 03/29/20 09:07 Lactulose 10 Gm /15 Ml Udc PO 10 gm BID IGLDA Administration Losartan Potassium 25 mg 03/28/20 09:00 03/29/20 09:07 Losartan 50 Mg Tablet PO 25 mg DAILY GILDA Administration Metoprolol Succinate 50 mg 03/28/20 09:00 03/29/20 09:06 Metoprolol Succinate 50 Mg Tablet PO 50 mg DAILY GILDA Administration Mineral Oil 30 ml 03/28/20 12:00 03/29/20 09:08 Mineral Oil 473 Ml Bottle PO 30 ml BID GILDA Administration Ondansetron HCl 4 mg 03/25/20 13:52 03/29/20 02:20 Ondansetron 4 Mg/2 Ml Vial IVP 4 mg Q6HR PRN Administration Nausea / Vomiting Pantoprazole Sodium 40 mg 03/26/20 07:00 03/29/20 06:27 Pantoprazole 40 Mg Vial IVP 40 mg QDAC GILDA Administration Sodium Chloride 10 ml 03/25/20 13:52 03/27/20 06:18 Sodium Chloride Flush 0.9% 10 Ml Syringe IVP 10 ml PRN PRN Administration NEEDED PER PROVIDER ORDERS Sodium Chloride 10 ml 03/25/20 17:00 03/29/20 09:09 Sodium Chloride Flush 0.9% 10 Ml Syringe IVP 10 ml 0100,0900,1700 GILDA Administration Sodium Chloride 20 ml 03/26/20 03:32 03/26/20 06:30 Sodium Chloride Flush 0.9% 10 Ml Syringe IVP 20 ml PRN PRN Administration After Blood Draw Throat Lozenges 1 lozenge 03/26/20 03:33 03/26/20 20:30 Benzocaine/Menthol Lozenge MM 1 lozenge Q2HR PRN Administration Throat pain - Physical Exam Wound/Incisions: positive: Healing well General Appearance: positive: No acute distress, Lethargic Eyes Bilateral: positive: Normal inspection, PERRL, EOMI Neck: positive: Nml inspection, Thyroid nml Respiratory: positive: Chest non-tender, No respiratory distress Cardiovascular: positive: Regular rate & rhythm, No murmur Abdomen: positive: Non-tender, Abnml bowel sounds (Hypoactive) Skin: positive: Color nml ABX Reporting Has patient been on IV antibiotics over the past 48 hours?: No Impression/Plan - Problem List Problem List: Only minimal evidence of bowel function. Will try manual disimpaction and then continue with cathartics
[2020-03-29] MEDS: GABAPENTIN 100 MG CAPSULE PO SCH (20:57)
[2020-03-29] MEDS ORDERED: MIN OIL/DIMETHICON/COCONUT OIL 92 GM TUBE TOP PRN (22:53)
[2020-03-30 05:26] LABS: EOSINOPHILS # (AUTO) 0.3 10^3/uL (0.0-0.7); EOSINOPHILS % (AUTO) 6.7 %; HGB - HEMOGLOBIN 8.9 g/dL (14.0-18.0); LYMPHOCYTES # (AUTO) 1.1 10^3/uL (1.5-3.5); LYMPHOCYTES % (AUTO) 27.4 %; MEAN CORPUSCULAR HEMOGLOBIN 32.2 pg (27.0-31.0); MEAN CORPUSCULAR HGB CONC 34.2 g/dL (32.0-36.0); MEAN CORPUSCULAR VOLUME 94.2 fL (80.0-94.0); MEAN PLATELET VOLUME 10.2 fL (7.4-11.4); MONOCYTES # (AUTO) 0.4 10^3/uL (0.0-1.0); MONOCYTES % (AUTO) 9.8 %; NEUTROPHILS # (AUTO) 2.2 10^3/uL (1.5-6.6); NEUTROPHILS % (AUTO) 55.8 %; PLT - PLATELET COUNT 108 10^3/uL (130-450); RED BLOOD COUNT 2.76 10^6/uL (4.70-6.10); RED CELL DISTRIBUTION WIDTH 12.4 % (12.0-15.0); WHITE BLOOD COUNT 3.9 x10^3/uL (4.8-10.8)
[2020-03-30 05:35] LABS: CALCIUM 7.9 mg/dL (8.5-10.3); CREATININE 0.6 mg/dL (0.6-1.2)
[2020-03-30] MEDS: PANTOPRAZOLE 40 MG VIAL IVP SCH (06:57)
[2020-03-30] MEDS ORDERED: POTASSIUM CHLOR 20 MEQ/100 ML 20 MEQ/100 ML BAG IV SCH (07:00)
[2020-03-30 07:03] LABS: ALBUMIN 2.6 g/dL (3.2-5.5); MAGNESIUM 1.8 mg/dL (1.7-2.8)
[2020-03-30] MEDS: MINERAL OIL 473 ML BOTTLE PO SCH ×2 (07:49→21:21)
[2020-03-30] MEDS: BISACODYL 10 MG SUPP PR SCH (07:49)
[2020-03-30] MEDS: LACTULOSE 10 GM /15 ML UDC PO SCH (07:49)
[2020-03-30] MEDS: LOSARTAN 50 MG TABLET PO SCH (08:11)
[2020-03-30] MEDS: APIXABAN 5 MG TABLET PO SCH ×2 (08:11→21:21)
[2020-03-30] MEDS: POTASSIUM CHLOR 10 MEQ/100 ML 10 MEQ/100 ML BAG IV SCH ×4 (08:11→12:00)
[2020-03-30] MEDS: SODIUM CHLORIDE FLUSH 0.9% 10 ML SYRINGE IVP SCH ×3 (08:15→21:21)
[2020-03-30] MEDS: METOPROLOL SUCCINATE 50 MG TABLET PO SCH (08:15)
[2020-03-30] MEDS ORDERED: POTASSIUM PHOSPHATE 15 MMOL in SODIUM CHLORIDE 0.9% 250 ML IV ONE (09:00)
--- NOTE | 2020-03-30 11:08 | PROVIDER PROGRESS NOTE ---
Subjective - Prog Note Date Prog Note Date: 03/30/20 - Subjective Subjective: Had multiple bowel movements overnight. Feels much improved today. Denies any abdominal pain. Reports no more vomiting although slight nausea still. He would like his diet advanced. Current Medications - Current Medications Current Medications: Active Medications Acetaminophen (Acetaminophen 500 Mg Tablet) 500 mg PO Q4HR PRN PRN Reason: Pain or Fever > 38C (100.4F) Apixaban (Apixaban 5 Mg Tablet) 5 mg PO BID [facility] Last Admin: 03/30/20 08:11 Dose: 5 mg Documented by: Bisacodyl (Bisacodyl 10 Mg Supp) 10 mg [place] DAILY [facility] Last Admin: 03/30/20 07:49 Dose: Not Given Documented by: Gabapentin (Gabapentin 100 Mg Capsule) 100 mg PO QPM [facility] Last Admin: 03/29/20 20:57 Dose: 100 mg Documented by: Hydromorphone HCl (Hydromorphone 1 Mg/Ml Carpuject) 1 mg IVP Q2HR PRN PRN Reason: PAIN >8 Last Admin: 03/28/20 21:31 Dose: 1 mg Documented by: Sodium Chloride (Normal Saline 0.9%) 1,000 mls @ 100 mls/hr IV .Q10H [facility] Last Infusion: 03/30/20 08:00 Dose: 0 mls/hr Documented by: Sodium Chloride (Normal Saline 0.9%) 500 mls @ 0 mls/hr IV Q24H PRN PRN Reason: TKO RATE Potassium Chloride (Potassium Chloride) 10 meq in 100 mls @ 100 mls/hr IV Q1H [facility] Stop: 03/30/20 11:59 Last Admin: 03/30/20 10:44 Dose: 100 mls/hr Documented by: Potassium Phosphate 15 mmol/ (Sodium Chloride) 255 mls @ 42.5 mls/hr IV ONCE ONE Stop: 03/30/20 14:59 Last Admin: 03/30/20 09:35 Dose: 42.5 mls/hr Documented by: Lactulose (Lactulose 10 Gm /15 Ml Udc) 10 gm PO BID [facility] Last Admin: 03/30/20 07:49 Dose: Not Given Documented by: Losartan Potassium (Losartan 50 Mg Tablet) 25 mg PO DAILY [facility] Last Admin: 03/30/20 08:11 Dose: 25 mg Documented by: Metoclopramide HCl (Metoclopramide 10 Mg/2 Ml Vial) 10 mg IVP Q6HR PRN PRN Reason: Nausea / Vomiting Metoprolol Succinate (Metoprolol Succinate 50 Mg Tablet) 50 mg PO DAILY [facility] Last Admin: 03/30/20 08:15 Dose: 50 mg Documented by: Mineral Oil (Mineral Oil 473 Ml Bottle) 30 ml PO BID [facility] Last Admin: 03/30/20 07:49 Dose: Not Given Documented by: Mineral Oil (Min Oil/Dimethicon/Coconut Oil 92 Gm Tube) 1 applic TOP PRN PRN PRN Reason: Skin Care Last Admin: 03/30/20 02:53 Dose: 1 applic Documented by: Ondansetron HCl (Ondansetron 4 Mg/2 Ml Vial) 4 mg IVP Q6HR PRN PRN Reason: Nausea / Vomiting Last Admin: 03/29/20 02:20 Dose: 4 mg Documented by: Pantoprazole Sodium (Pantoprazole 40 Mg Vial) 40 mg IVP QDAC [facility] Last Admin: 03/30/20 06:57 Dose: 40 mg Documented by: Sodium Chloride (Sodium Chloride Flush 0.9% 10 Ml Syringe) 10 ml IVP PRN PRN PRN Reason: NEEDED PER PROVIDER ORDERS Last Admin: 03/27/20 06:18 Dose: 10 ml Documented by: Sodium Chloride (Sodium Chloride Flush 0.9% 10 Ml Syringe) 10 ml IVP 0100,0900,1700 [facility] Last Admin: 03/30/20 08:15 Dose: 10 ml Documented by: Sodium Chloride (Sodium Chloride Flush 0.9% 10 Ml Syringe) 20 ml IVP PRN PRN PRN Reason: After Blood Draw Last Admin: 03/26/20 06:30 Dose: 20 ml Documented by: Throat Lozenges (Benzocaine/Menthol Lozenge) 1 lozenge MM Q2HR PRN PRN Reason: Throat pain Last Admin: 03/26/20 20:30 Dose: 1 lozenge Documented by: Gabapentin [Neurontin] 100 - 200 mg PO QPM 02/26/20 Apixaban [Eliquis] 5 mg PO BID 03/25/20 Losartan Potassium 25 mg PO DAILY 03/25/20 Metoprolol Succinate [Toprol Xl] 50 mg PO DAILY 03/25/20 Spironolactone [Aldactone] 25 mg PO DAILY 03/25/20 Objective - Vital Signs/Intake & Output Reviewed Vital Signs: Yes Vital Signs: Vital Signs x48h Temp Pulse Resp BP Pulse Ox 03/30/20 08:00 80 16 125/60 96 03/30/20 04:00 36.8 C 73 14 162/58 H 96 Intake & Output: Intake & Output 03/27/20 03/28/20 03/29/20 03/30/20 23:59 23:59 23:59 23:59 Intake Total 4465.000 3285 3226.334 2678.333 Output Total 1250 1330 948 Balance 3215.000 1955 2278.334 2678.333 - Objective General Appearance: positive: No acute distress, Alert Eyes Bilateral: positive: Normal inspection, Conjunctivae nml ENT: positive: ENT inspection nml Neck: positive: Nml inspection Respiratory: positive: No respiratory distress. negative: Wheezes, Rales Cardiovascular: positive: Regular rate & rhythm, No murmur. negative: Tachycardia, Systolic murmur Abdomen: positive: Non-tender, No distention, Abnml bowel sounds (Bowel sounds are still slightly hypoactive.), Other (Dressing in place.). negative: Tenderness, Rebound Skin: positive: Warm, Dry Extremities: positive: No pedal edema - Lab Results Fish Bones: 03/30/20 04:38 03/30/20 04:38 Other Labs: Lab Results x24hrs 03/30/20 03/30/20 03/30/20 Range/Units 04:38 04:38 04:30 WBC 3.9 L (4.8-10.8) x10^3/uL RBC 2.76 L (4.70-6.10) 10^6/uL Hgb 8.9 L (14.0-18.0) g/dL Hct 26.0 L (42.0-52.0) % MCV 94.2 H (80.0-94.0) fL MCH 32.2 H (27.0-31.0) pg MCHC 34.2 (32.0-36.0) g/dL RDW 12.4 (12.0-15.0) % Plt Count 108 L (130-450) 10^3/uL MPV 10.2 (7.4-11.4) fL Neut # (Auto) 2.2 (1.5-6.6) 10^3/uL Lymph # (Auto) 1.1 L (1.5-3.5) 10^3/uL [place] # (Auto) 0.4 (0.0-1.0) 10^3/uL Eos # (Auto) 0.3 (0.0-0.7) 10^3/uL Baso # (Auto) 0.0 (0.0-0.1) 10^3/uL Absolute Nucleated RBC 0.00 x10^3/uL Nucleated RBC % 0.0 /100WBC Sodium 136 (135-145) mmol/L Potassium 3.2 L (3.5-5.0) mmol/L Chloride 107 (101-111) mmol/L Carbon Dioxide 24 (21-32) mmol/L Anion Gap 5.0 L (6-13) BUN 10 (6-20) mg/dL Creatinine 0.6 (0.6-1.2) mg/dL Estimated GFR (MDRD) 132 (>89) Glucose 102 H (70-100) mg/dL Calcium 7.9 L (8.5-10.3) mg/dL Phosphorus 2.0 L (2.5-4.6) mg/dL Magnesium 1.8 (1.7-2.8) mg/dL Albumin 2.6 L (3.2-5.5) g/dL Assessment/Plan - Problem List (1) Small bowel obstruction Impression: He has now finally had a bowel movement and feels improved overall. He has been tolerating clear liquid diet and so we will advance his diet to a full liquid diet and possibly a soft diet for dinner. If okay with general surgery, suspect he will likely be able to discharge home tomorrow. Continue antiemetics as needed. (2) Ischemia, bowel Impression: Status post small bowel resection. This was secondary to internal hernia. Plan as mentioned above. (3) Atrial flutter Impression: We have resumed his home metoprolol and Eliquis. Stable. Qualifiers: Atrial flutter type: unspecified Qualified Code(s): I48.92 - Unspecified atrial flutter (4) Cardiomyopathy Impression: Stable. We have continued his home medications and will resume spironolactone. (5) Presence of cardiac pacemaker Impression: Stable. 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
--- NOTE | 2020-03-30 13:41 | PROVIDER PROGRESS NOTE ---
Subjective - General Admit Date: 03/25/20 Procedure Date: 03/25/20 Post Op Days: 5 Procedure Performed: Laparotomy with small bowel resection - Review of Systems Wound/Incisions: positive: Healing well General: positive: Weakness, Fatigue HEENT: positive: No symptoms Cardiovascular: positive: No symptoms Gastrointestinal: positive: Other (Thirsty). negative: Nausea, Vomiting Genitourinary: positive: Other (Cabral in place) - Other Other Information/Narrative: Much much better today. Multiple bowel movements yesterday and now has diar robbie. Nausea has resolved. Objective - Patient Data Reviewed Vital Signs: Yes Vital Signs: Vital Signs x48h Pulse Resp BP BP Pulse Ox 03/30/20 12:00 82 15 118/56 L 99 03/30/20 08:00 80 16 125/60 96 Weight: Weight 03/28/20 03/29/20 03/30/20 23:59 23:59 23:59 Weight (kg) 76 kg 76.5 kg 76.3 kg Intake & Output: Intake and Output Totals x24h 03/28/20 03/29/20 03/30/20 23:59 23:59 23:59 Intake Total 3285 3226.334 3020.000 Output Total 1330 948 Balance 1955 2278.334 3020.000 - Lab Results Lab Results: 03/30/20 04:38 03/30/20 04:38 Other Lab Results: Lab Results x24hrs 03/30/20 03/30/20 03/30/20 Range/Units 04:38 04:38 04:30 WBC 3.9 L (4.8-10.8) x10^3/uL RBC 2.76 L (4.70-6.10) 10^6/uL Hgb 8.9 L (14.0-18.0) g/dL Hct 26.0 L (42.0-52.0) % MCV 94.2 H (80.0-94.0) fL MCH 32.2 H (27.0-31.0) pg MCHC 34.2 (32.0-36.0) g/dL RDW 12.4 (12.0-15.0) % Plt Count 108 L (130-450) 10^3/uL MPV 10.2 (7.4-11.4) fL Neut # (Auto) 2.2 (1.5-6.6) 10^3/uL Lymph # (Auto) 1.1 L (1.5-3.5) 10^3/uL [place] # (Auto) 0.4 (0.0-1.0) 10^3/uL Eos # (Auto) 0.3 (0.0-0.7) 10^3/uL Baso # (Auto) 0.0 (0.0-0.1) 10^3/uL Absolute Nucleated RBC 0.00 x10^3/uL Nucleated RBC % 0.0 /100WBC Sodium 136 (135-145) mmol/L Potassium 3.2 L (3.5-5.0) mmol/L Chloride 107 (101-111) mmol/L Carbon Dioxide 24 (21-32) mmol/L Anion Gap 5.0 L (6-13) BUN 10 (6-20) mg/dL Creatinine 0.6 (0.6-1.2) mg/dL Estimated GFR (MDRD) 132 (>89) Glucose 102 H (70-100) mg/dL Calcium 7.9 L (8.5-10.3) mg/dL Phosphorus 2.0 L (2.5-4.6) mg/dL Magnesium 1.8 (1.7-2.8) mg/dL Albumin 2.6 L (3.2-5.5) g/dL - Current Medications Current Medications: Current Medications Generic Name Dose Route Start Last Admin Trade Name Freq PRN Reason Stop Dose Admin Apixaban 5 mg 03/28/20 21:00 03/30/20 08:11 Apixaban 5 Mg Tablet PO 5 mg BID GILDA Administration Bisacodyl 10 mg 03/27/20 10:00 03/30/20 07:49 Bisacodyl 10 Mg Supp [place] Not Given DAILY GILDA Gabapentin 100 mg 03/27/20 21:00 03/29/20 20:57 Gabapentin 100 Mg Capsule PO 100 mg QPM GILDA Administration Hydromorphone HCl 1 mg 03/26/20 13:47 03/28/20 21:31 Hydromorphone 1 Mg/Ml Carpuject IVP 1 mg Q2HR PRN Administration PAIN >8 Potassium Phosphate 15 mmol/ 255 mls @ 42.5 mls/hr 03/30/20 09:00 03/30/20 12:55 Sodium Chloride IV 03/30/20 14:59 0 mls/hr ONCE ONE Infusion Lactulose 10 gm 03/28/20 12:00 03/30/20 07:49 Lactulose 10 Gm /15 Ml Udc PO Not Given BID [facility] Losartan Potassium 25 mg 03/28/20 09:00 03/30/20 08:11 Losartan 50 Mg Tablet PO 25 mg DAILY GILDA Administration Metoprolol Succinate 50 mg 03/28/20 09:00 03/30/20 08:15 Metoprolol Succinate 50 Mg Tablet PO 50 mg DAILY GILDA Administration Mineral Oil 30 ml 03/28/20 12:00 03/30/20 07:49 Mineral Oil 473 Ml Bottle PO Not Given BID GILDA Mineral Oil 1 applic 03/29/20 22:53 03/30/20 02:53 Min Oil/Dimethicon/Coconut Oil 92 Gm Tube TOP 1 applic PRN PRN Administration Skin Care Ondansetron HCl 4 mg 03/25/20 13:52 03/29/20 02:20 Ondansetron 4 Mg/2 Ml Vial IVP 4 mg Q6HR PRN Administration Nausea / Vomiting Pantoprazole Sodium 40 mg 03/26/20 07:00 03/30/20 06:57 Pantoprazole 40 Mg Vial IVP 40 mg QDAC GILDA Administration Sodium Chloride 10 ml 03/25/20 13:52 03/27/20 06:18 Sodium Chloride Flush 0.9% 10 Ml Syringe IVP 10 ml PRN PRN Administration NEEDED PER PROVIDER ORDERS Sodium Chloride 10 ml 03/25/20 17:00 03/30/20 08:15 Sodium Chloride Flush 0.9% 10 Ml Syringe IVP 10 ml 0100,0900,1700 GILDA Administration Sodium Chloride 20 ml 03/26/20 03:32 03/26/20 06:30 Sodium Chloride Flush 0.9% 10 Ml Syringe IVP 20 ml PRN PRN Administration After Blood Draw Throat Lozenges 1 lozenge 03/26/20 03:33 03/26/20 20:30 Benzocaine/Menthol Lozenge MM 1 lozenge Q2HR PRN Administration Throat pain - Physical Exam Wound/Incisions: positive: Healing well, No drainage General Appearance: positive: No acute distress, Alert Eyes Bilateral: positive: Normal inspection Respiratory: positive: Breath sounds nml Abdomen: positive: Nml bowel sounds, Tenderness, Other (Minimal appropriate tenderness to palpation. Active bowel sounds) Skin: positive: Color nml Extremities: positive: Non-tender Neurologic/Psychiatric: positive: Oriented x3 ABX Reporting Has patient been on IV antibiotics over the past 48 hours?: No Impression/Plan - Problem List Problem List: Making excellent progress. Will decrease reglan and lactulose. Regular diet if desired. Home when Hospitalist feels appropriate. 10 pound lifting restriction x 2 months.
[2020-03-30] MEDS ORDERED: LACTULOSE 10 GM /15 ML UDC PO PRN (13:42)
[2020-03-30] MEDS: GABAPENTIN 100 MG CAPSULE PO SCH (21:21)
[2020-03-31 05:28] LABS: BASOPHILS % (AUTO) 0.3 %; EOSINOPHILS # (AUTO) 0.3 10^3/uL (0.0-0.7); EOSINOPHILS % (AUTO) 7.6 %; LYMPHOCYTES # (AUTO) 1.1 10^3/uL (1.5-3.5); LYMPHOCYTES % (AUTO) 28.2 %; MEAN CORPUSCULAR HEMOGLOBIN 33.2 pg (27.0-31.0); MEAN CORPUSCULAR HGB CONC 35.7 g/dL (32.0-36.0); MEAN PLATELET VOLUME 10.3 fL (7.4-11.4); MONOCYTES # (AUTO) 0.5 10^3/uL (0.0-1.0); MONOCYTES % (AUTO) 11.8 %; NEUTROPHILS # (AUTO) 2.1 10^3/uL (1.5-6.6); NEUTROPHILS % (AUTO) 51.8 %; PLT - PLATELET COUNT 134 10^3/uL (130-450); RED BLOOD COUNT 2.71 10^6/uL (4.70-6.10); RED CELL DISTRIBUTION WIDTH 12.7 % (12.0-15.0)
[2020-03-31 05:39] LABS: CALCIUM 8.3 mg/dL (8.5-10.3); CREATININE 0.6 mg/dL (0.6-1.2)
[2020-03-31 05:43] LABS: MAGNESIUM 1.6 mg/dL (1.7-2.8); PHOSPHORUS 3.4 mg/dL (2.5-4.6)
[2020-03-31] MEDS: PANTOPRAZOLE 40 MG VIAL IVP SCH (06:59)
--- NOTE | 2020-03-31 07:15 | Discharge Plan ---
Discharge Plan Problem Reviewed?: Yes Disposition: Home, Self Care Condition: Stable Prescriptions: polyethylene glycoL 3350 [Miralax] 17 gm PO DAILY #30 packet Diet: Regular Activity Restrictions: Activity as Tolerated Health Concerns: You were admitted to the hospital because of an obstruction of your small intestine. This occurred due to an internal hernia and because of this obstruction, you had decreased blood flow to part of your bowel. You had surgery and part of your small bowel was resected due to lack of blood flow. Your diet has since been advanced and you are tolerating a diet without vomiting. You are now stable for discharge home. Plan of Treatment: Please do not lift anything greater than 10lbs for the the next two months. Please take MiraLAX daily. Care Goals: Please return to the emergency department if you develop fevers, chills, abdominal pain, nausea/vomiting. Assessment: Patient expressed understanding of the treatment plan. Additional Instructions or Follow Up instructions: Please follow up with General Surgery in two weeks. The number is [phone]. No Smoking: If you smoke, Please STOP! Call for help. Follow-up with: Rob Porras MD [Primary Care Provider] -
--- NOTE | 2020-03-31 07:15 | DISCHARGE SUMMARY ---
"Discharge Summary Admit Date: 03/25/20 Discharge Date: 03/31/20 Discharging Provider: Brady Perez Primary Care Provider: Rob Porras Code Status: Attempt Resuscitation Condition at Discharge: Stable Discharge Disposition: 01 Home, Self Care - DIAGNOSES Admission Diagnoses: Small bowel obstruction Ischemic bowel Chronic atrial flutter Sleep apnea Restless leg syndrome History of pacemaker The patient LV cardiomyopathy of undetermined type Cor pulmonale PFO Discharge Diagnoses with Status of Each Condition: Small bowel obstruction - resolved. Ischemic bowel - resolved. Atrial flutter - stable. Cardiomyopathy - stable. Presence of cardiac pacemaker - stable. - HPI History of Present Illness: Please refer to H&P of Dr. Tabares. In summary, this was a 75-year-old male who presented with acute onset abdominal pain associated with nausea and vomiting who was found to have a small bowel obstruction. - CONSULTS | PROCEDURES Consultations: General Surgery Procedures: Underwent laparoscopy which converted to laparotomy with small bowel resection, primary ileal ileostomy, lysis of adhesions, appendectomy and right subclavian central line placement. He was found to have internal hernia with frankly hemorrhagic and necrotic ileum. - HOSPITAL COURSE Hospital Course: He was admitted for small bowel obstruction but given his severe pain, he was taken immediately to the OR where he had an open laparotomy with small bowel resection, primary ileal ileostomy, lysis of adhesions, appendectomy and right subclavian central line placement. He was found to have an internal hernia with frankly hemorrhagic and necrotic ileum. He was admitted to the ICU postoperatively where he was placed on IV Zosyn empirically. He was made n.p.o. and continued on IV fluids. It took a few days for bowel function to return. He was treated with lactulose, Reglan. Despite this, he still did not have a bowel movement and so he was given an enema as well as mineral oil. He was finally able to have bowel movement and his diet was advanced from a clear liquid to soft diet and then regular diet which he tolerated well without further vomiting. He had no abdominal pain on the day of discharge and he did not need any opiates. After discussion with surgery, he was provided with MiraLAX to take daily on a scheduled basis. He was asked to follow-up with general surgery in 2 weeks and he was provided with the clinic number. - ALLERGIES Allergies/Adverse Reactions: Allergies Allergy/AdvReac Type Severity Reaction Status Date / Time diazepam [From Valium] Allergy Unknown Verified 03/25/20 11:43 Sulfa (Sulfonamide Allergy Unknown Verified 03/25/20 11:43 Antibiotics) - MEDICATIONS Home Medications: Ambulatory Orders Medication Instructions Recorded Confirmed Gabapentin [Neurontin] 100 - 200 mg PO QPM 02/26/20 03/25/20 Apixaban [Eliquis] 5 mg PO BID 03/25/20 03/27/20 Losartan Potassium 25 mg PO DAILY 03/25/20 03/25/20 Metoprolol Succinate [Toprol Xl] 50 mg PO DAILY 03/25/20 03/27/20 Spironolactone [Aldactone] 25 mg PO DAILY 03/25/20 03/25/20 polyethylene glycoL 3350 [Miralax] 17 gm PO DAILY #30 packet 03/31/20 - PHYSICAL EXAM AT DISCHARGE General Appearance: positive: No acute distress, Alert Eyes Bilateral: positive: Normal inspection, Conjunctivae nml ENT: positive: ENT inspection nml Neck: positive: Nml inspection Respiratory: positive: No respiratory distress. negative: Wheezes, Rales Cardiovascular: positive: Regular rate & rhythm, Other (Pacemaker in place.). negative: Tachycardia, Systolic murmur Abdomen: positive: Non-tender, Nml bowel sounds, No distention, Other (Dressing in place.). negative: Tenderness Skin: positive: Warm, Dry Extremities: positive: No pedal edema Neurologic/Psychiatric: positive: Oriented x3, Motor nml. negative: Disoriented to person, Disoriented to place, Disoriented to time Physical Exam Other/Comments: Vital Signs - 24 hr 03/30/20 03/31/20 03/31/20 19:42 00:46 04:45 Temperature 36.5 C 37.1 C 36.4 C L Heart Rate [ 75 83 66 Monitoring electrodes] Respiratory 18 19 16 Rate Blood Pressure 137/67 H 112/61 105/43 L [Left Brachial artery] O2 Saturation 100 100 100 03/31/20 08:00 Temperature 36.5 C Heart Rate [ 78 Monitoring electrodes] Respiratory 16 Rate Blood Pressure 138/54 H [Left Brachial artery] O2 Saturation 100 Oxygen O2 Source Room air - LABS Result Diagrams: 03/31/20 04:27 03/31/20 04:27 Other Lab Results: Laboratory Results 03/31/20 04:27: Sodium 139, Potassium 3.7, Chloride 108, Carbon Dioxide 26, A nion Gap 5.0 L, BUN 8, Creatinine 0.6, Estimated GFR (MDRD) 132, Glucose 105 H, Calcium 8.3 L 03/31/20 04:27: WBC 4.0 L, RBC 2.71 L, Hgb 9.0 L, Hct 25.2 L, MCV 93.0, MCH 33.2 H, MCHC 35.7, RDW 12.7, Plt Count 134, MPV 10.3, Neut # (Auto) 2.1, Lymph # (Auto) 1.1 L, [place] # (Auto) 0.5, Eos # (Auto) 0.3, Baso # (Auto) 0.0, Absolute Nucleated RBC 0.00, Nucleated RBC % 0.0 03/31/20 04:27: Phosphorus 3.4, Magnesium 1.6 L 03/30/20 04:38: Sodium 136, Potassium 3.2 L, Chloride 107, Carbon Dioxide 24, Anion Gap 5.0 L, BUN 10, Creatinine 0.6, Estimated GFR (MDRD) 132, Glucose 102 H, Calcium 7.9 L 03/30/20 04:38: WBC 3.9 L, RBC 2.76 L, Hgb 8.9 L, Hct 26.0 L, MCV 94.2 H, MCH 32.2 H, MCHC 34.2, RDW 12.4, Plt Count 108 L, MPV 10.2, Neut # (Auto) 2.2, Lymph # (Auto) 1.1 L, [place] # (Auto) 0.4, Eos # (Auto) 0.3, Baso # (Auto) 0.0, Absolute Nucleated RBC 0.00, Nucleated RBC % 0.0 03/30/20 04:30: Phosphorus 2.0 L, Magnesium 1.8, Albumin 2.6 L - DIAGNOSTIC IMAGING Diagnostic Imaging Results: Final report reviewed - FOLLOW UP Follow Up: He was asked to follow-up with general surgery in 2 weeks and he was provided with the number for the clinic. - TIME SPENT Time Spent in Discharge (Minutes): 35"
[2020-03-31 09:07] VITALS: BP 138/54
[2020-03-31] MEDS: APIXABAN 5 MG TABLET PO SCH (09:14)
[2020-03-31] MEDS: LOSARTAN 50 MG TABLET PO SCH (09:14)
[2020-03-31] MEDS: METOPROLOL SUCCINATE 50 MG TABLET PO SCH (09:15)
[2020-03-31] MEDS: MINERAL OIL 473 ML BOTTLE PO SCH (09:16)
[2020-03-31] MEDS: SODIUM CHLORIDE FLUSH 0.9% 10 ML SYRINGE IVP SCH (09:16)
== END 2020-03-31 12:50 | disposition home or self-care (01) | DRG 330 ==
LOC: EDUNIT# → ED 11:36 → MS2 13:52 → ICU 18:21
PROVIDERS: ADMIT Internal Medicine; ATTEND Internal Medicine
PROC: 0DTJ0ZZ Resection of Appendix, Open Approach (ICD-10-PCS; 2020-03-25)
PROC: 0WJG4ZZ Inspection of Peritoneal Cavity, Percutaneous Endoscopic Approach (ICD-10-PCS; 2020-03-25)
PROC: 02HV33Z Insertion of Infusion Device into Superior Vena Cava, Percutaneous Approach (ICD-10-PCS; 2020-03-25)
PROC: 0DBB0ZZ Excision of Ileum, Open Approach (ICD-10-PCS; principal; 2020-03-25 16:45)
DX: K56.609 Unspecified intestinal obstruction, unspecified as to partial versus complete obstruction (principal); K55.1 Chronic vascular disorders of intestine; I48.92 Unspecified atrial flutter; I42.9 Cardiomyopathy, unspecified; R18.8 Other ascites; K46.0 Unspecified abdominal hernia with obstruction, without gangrene; Z79.01 Long term (current) use of anticoagulants; I27.81 Cor pulmonale (chronic); I27.20 Pulmonary hypertension, unspecified; G47.30 Sleep apnea, unspecified; Z95.0 Presence of cardiac pacemaker; G25.81 Restless legs syndrome; K59.09 Other constipation; K46.9 Unspecified abdominal hernia without obstruction or gangrene; Z82.49 Family history of ischemic heart disease and other diseases of the circulatory system; K42.9 Umbilical hernia without obstruction or gangrene; I48.91 Unspecified atrial fibrillation
CPT/HCPCS: 36415; 43753; 71045; 74177; 80048; 80053; 81003; 82040; 83605; 83690; 83735; 84100; 85025; 87150; 87631; 96374; 96375; 99284; 99285; A6250; A9270; J0131; J1170; J2765; J7120; Q9963; Q9967; 0202U; 81001; 87086

== ENCOUNTER 2020-06-17 09:30 | Outpatient (CLI) | payer MEDICARE, BC ==
[2020-06-17 14:36] LABS: BASOPHILS % (AUTO) 0.4 %; EOSINOPHILS # (AUTO) 0.6 10^3/uL (0.0-0.7); EOSINOPHILS % (AUTO) 13.1 %; HGB - HEMOGLOBIN 13.8 g/dL (14.0-18.0); LYMPHOCYTES # (AUTO) 1.7 10^3/uL (1.5-3.5); LYMPHOCYTES % (AUTO) 36.8 %; MEAN CORPUSCULAR HEMOGLOBIN 32.1 pg (27.0-31.0); MEAN CORPUSCULAR HGB CONC 34.5 g/dL (32.0-36.0); MEAN PLATELET VOLUME 11.1 fL (7.4-11.4); MONOCYTES # (AUTO) 0.4 10^3/uL (0.0-1.0); MONOCYTES % (AUTO) 8.8 %; NEUTROPHILS # (AUTO) 1.9 10^3/uL (1.5-6.6); NEUTROPHILS % (AUTO) 40.7 %; PLT - PLATELET COUNT 138 10^3/uL (130-450); WHITE BLOOD COUNT 4.7 x10^3/uL (4.8-10.8)
[2020-06-17 14:41] LABS: INR 1.2 (0.8-1.2); PT - PROTHROMBIN TIME 13.2 secs (9.9-12.6)
[2020-06-17 14:51] LABS: CALCIUM 10.5 mg/dL (8.5-10.3); CREATININE 0.8 mg/dL (0.6-1.2); PHOSPHORUS 3.7 mg/dL (2.5-4.6); POTASSIUM 4.1 mmol/L (3.5-5.0)
== END 2020-06-17 09:31 | disposition home or self-care (01) ==
LOC: LAB.S 09:30
PROVIDERS: ATTEND Internal Medicine Clinical Cardiac Electrophysiology
DX: I45.9 Conduction disorder, unspecified (principal); I48.92 Unspecified atrial flutter
CPT/HCPCS: 36415; 80069; 85025; 85610

== ENCOUNTER 2020-10-09 09:24 | Outpatient (CLI) | payer MEDICARE, BC ==
[2020-10-09 14:55] LABS: BASOPHILS % (AUTO) 0.5 %; EOSINOPHILS # (AUTO) 0.3 10^3/uL (0.0-0.7); EOSINOPHILS % (AUTO) 7.6 %; HGB - HEMOGLOBIN 12.3 g/dL (14.0-18.0); LYMPHOCYTES # (AUTO) 1.7 10^3/uL (1.5-3.5); MEAN CORPUSCULAR HEMOGLOBIN 32.9 pg (27.0-31.0); MEAN CORPUSCULAR HGB CONC 34.2 g/dL (32.0-36.0); MEAN CORPUSCULAR VOLUME 96.3 fL (80.0-94.0); MEAN PLATELET VOLUME 10.7 fL (7.4-11.4); MONOCYTES # (AUTO) 0.4 10^3/uL (0.0-1.0); NEUTROPHILS # (AUTO) 1.8 10^3/uL (1.5-6.6); NEUTROPHILS % (AUTO) 41.7 %; PLT - PLATELET COUNT 139 10^3/uL (130-450); RED BLOOD COUNT 3.74 10^6/uL (4.70-6.10); RED CELL DISTRIBUTION WIDTH 13.1 % (12.0-15.0); WHITE BLOOD COUNT 4.2 x10^3/uL (4.8-10.8)
[2020-10-09 15:19] LABS: CALCIUM 9.5 mg/dL (8.5-10.3); POTASSIUM 4.1 mmol/L (3.5-5.0)
[2020-10-09 15:43] LABS: ALBUMIN 3.8 g/dL (3.2-5.5); ALBUMIN/GLOBULIN RATIO 1.2 (1.0-2.2); BILIRUBIN,TOTAL 1.2 mg/dL (0.2-1.0); CREATININE 0.7 mg/dL (0.6-1.2); MAGNESIUM 2.2 mg/dL (1.7-2.8); TOTAL PROTEIN 6.9 g/dL (6.7-8.2)
== END 2020-10-09 09:25 | disposition home or self-care (01) ==
LOC: LAB.S 09:24
PROVIDERS: ATTEND Internal Medicine
DX: D64.9 Anemia, unspecified (principal); R03.0 Elevated blood-pressure reading, without diagnosis of hypertension; E83.42 Hypomagnesemia
CPT/HCPCS: 36415; 80053; 82728; 83735; 85025

== ENCOUNTER 2021-04-01 10:05 | Outpatient (CLI) | payer MEDICARE ==
[2021-04-01 14:26] LABS: BASOPHILS % (AUTO) 0.4 %; EOSINOPHILS # (AUTO) 0.4 10^3/uL (0.0-0.7); EOSINOPHILS % (AUTO) 7.3 %; HCT - HEMATOCRIT 38.5 % (42.0-52.0); HGB - HEMOGLOBIN 13.1 g/dL (14.0-18.0); LYMPHOCYTES # (AUTO) 1.8 10^3/uL (1.5-3.5); LYMPHOCYTES % (AUTO) 37.5 %; MEAN CORPUSCULAR HEMOGLOBIN 32.1 pg (27.0-31.0); MEAN CORPUSCULAR VOLUME 94.4 fL (80.0-94.0); MEAN PLATELET VOLUME 10.3 fL (7.4-11.4); MONOCYTES # (AUTO) 0.5 10^3/uL (0.0-1.0); MONOCYTES % (AUTO) 10.2 %; NEUTROPHILS # (AUTO) 2.1 10^3/uL (1.5-6.6); NEUTROPHILS % (AUTO) 44.4 %; PLT - PLATELET COUNT 160 10^3/uL (130-450); RED BLOOD COUNT 4.08 10^6/uL (4.70-6.10); RED CELL DISTRIBUTION WIDTH 12.8 % (12.0-15.0); WHITE BLOOD COUNT 4.8 x10^3/uL (4.8-10.8)
== END 2021-04-01 10:06 | disposition home or self-care (01) ==
LOC: LAB.S 10:05
PROVIDERS: ATTEND Internal Medicine
DX: D64.9 Anemia, unspecified (principal)
CPT/HCPCS: 36415; 82728; 85025

== ENCOUNTER 2022-11-02 09:06 | Outpatient (CLI) | payer MEDICARE ==
[2022-11-02 15:29] LABS: BASOPHILS % (AUTO) 0.7 %; EOSINOPHILS # (AUTO) 0.4 10^3/uL (0.0-0.7); EOSINOPHILS % (AUTO) 8.9 %; HCT - HEMATOCRIT 38.3 % (42.0-52.0); LYMPHOCYTES # (AUTO) 1.4 10^3/uL (1.5-3.5); LYMPHOCYTES % (AUTO) 32.2 %; MEAN CORPUSCULAR HEMOGLOBIN 32.5 pg (27.0-31.0); MEAN CORPUSCULAR HGB CONC 33.9 g/dL (32.0-36.0); MEAN CORPUSCULAR VOLUME 95.8 fL (80.0-94.0); MEAN PLATELET VOLUME 11.1 fL (7.4-11.4); MONOCYTES # (AUTO) 0.4 10^3/uL (0.0-1.0); MONOCYTES % (AUTO) 9.3 %; NEUTROPHILS # (AUTO) 2.1 10^3/uL (1.5-6.6); NEUTROPHILS % (AUTO) 48.7 %; PLT - PLATELET COUNT 135 10^3/uL (130-450); RED CELL DISTRIBUTION WIDTH 12.9 % (12.0-15.0); WHITE BLOOD COUNT 4.3 x10^3/uL (4.8-10.8)
[2022-11-02 15:48] LABS: ALBUMIN/GLOBULIN RATIO 1.4 (1.0-2.2); ALKALINE PHOSPHATASE 67 IU/L (42-121); ALT ALANINE AMINOTRANSFERASE 13 IU/L (10-60); AST ASPARTATE AMINOTRANSFERASE 18 IU/L (10-42); BUN - BLOOD UREA NITROGEN 18 mg/dL (6-20); CALCIUM 9.9 mg/dL (8.5-10.3); CARBON DIOXIDE - CO2 27 mmol/L (21-32); CHLORIDE 107 mmol/L (101-111); CHOL/HDL RATIO 3.6 (<5.0); CHOLESTEROL 189 mg/dL; CREATININE 0.9 mg/dL (0.6-1.3); GFR - MDRD 82 (>89); GLUCOSE 99 mg/dL (74-104); HDL CHOLESTEROL 53 mg/dL; LDL CHOLESTEROL,CALCULATED 117 mg/dL; LDL/HDL RATIO 2.2 (<3.6); POTASSIUM 4.5 mmol/L (3.5-4.5); SODIUM 137 mmol/L (135-145); TOTAL PROTEIN 6.9 g/dL (6.4-8.9); TRIGLYCERIDES 94 mg/dL (48-352); VLDL CHOLESTEROL 19 mg/dL
== END 2022-11-02 09:07 | disposition home or self-care (01) ==
LOC: LAB.S 09:06
PROVIDERS: ATTEND Registered Nurse
DX: Z79.899 Other long term (current) drug therapy (principal); R03.0 Elevated blood-pressure reading, without diagnosis of hypertension; E78.5 Hyperlipidemia, unspecified
CPT/HCPCS: 36415; 80053; 80061; 83721; 85025

== ENCOUNTER 2022-12-24 14:42 | Outpatient (CLI) | payer MEDICARE | END 2022-12-24 14:43 | disposition critical access hospital (66) | LOC: EMS 14:42 | DX: R60.0 Localized edema (principal); R49.0 Dysphonia; T78.40XA Allergy, unspecified, initial encounter | CPT/HCPCS: A0425; A0429 ==

== ENCOUNTER 2022-12-24 15:18 | Emergency (ER) | payer MEDICARE ==
[2022-12-24] MEDS ORDERED: SODIUM CHLORIDE INHALATION 3 ML NEB INH STA (15:29)
[2022-12-24] MEDS ORDERED: DEXAMETHASONE 10 MG/ML VIAL IVP STA (15:29)
[2022-12-24] MEDS ORDERED: RACEPINEPHRINE 2.25% NEB INH STA (15:29)
[2022-12-24] MEDS ORDERED: SODIUM CHLORIDE 0.9% 1,000 ML IV STA (15:31)
--- NOTE | 2022-12-24 15:31 | ED Physician Documentation ---
PD HPI HEENT - Stated complaint Stated Complaint: ANGIOEDEMA - History obtained from History obtained from: Patient, EMS (brought from Walk In clinic to ER by EMS. No worsening enroute and tongue/lip swelling improving.), Other (walk in clinc) - History of Present Illness Timing - onset: How many hours ago (2 1/2 hours ago, about 1 pm, when eating snack of grapes and strawberry, had onset of left tongue and lips swelling after eating the fruit, very promptly once contacted his tongue and mouth. Continued with the swelling and his took him pormptly to the walk in clinic. There given Epi/Benadryl), Today Timing - details: Abrupt onset, Still present (it has decreased quite a bit. The patient states the maximal swelling was oon after the food. It did notincrease enroute to waok in and has improved since there.) Review of Systems Constitutional: denies: Fever, Chills Nose: reports: Rhinorrhea / runny nose, Congestion (for about a week, moslty improved.) Throat: denies: Sore throat Respiratory: reports: Cough (for about a week, improving) PD PAST MEDICAL HISTORY - Past Medical History Cardiovascular: Hypertension (on losartan.) Respiratory: Sleep apnea Neuro: None Endocrine/Autoimmune: None GI: None : Frequency Psych: None Musculoskeletal: Other Derm: None - Past Surgical History Past Surgical History: Yes General: Colonoscopy (approximately 20 years ago) Cardiovascular: Pacemaker - Present Medications Home Medications: Ambulatory Orders Medication Instructions Recorded Confirmed Gabapentin [Neurontin] 100 - 200 mg PO QPM 02/26/20 12/24/22 Losartan Potassium 25 mg PO DAILY 03/25/20 12/24/22 Metoprolol Succinate [Toprol Xl] 50 mg PO DAILY 03/25/20 12/24/22 Spironolactone [Aldactone] 25 mg PO DAILY 03/25/20 12/24/22 Betamethasone Dipropionate 15 gm TP BID 12/24/22 12/24/22 EPINEPHrine [Epinephrine] 0.3 mg IJ ONCE PRN #1 each 12/24/22 rOPINIRole [Requip] 0.5 mg PO QPM PRN 12/24/22 12/24/22 - Allergies Allergies/Adverse Reactions: Allergies Allergy/AdvReac Type Severity Reaction Status Date / Time diazepam [From Valium] Allergy Unknown Verified 12/24/22 15:31 Sulfa (Sulfonamide Allergy Unknown Verified 12/24/22 15:31 Antibiotics) - Social History Does the pt smoke?: No Smoking Status: Never smoker Does the pt drink ETOH?: No Does the pt have substance abuse?: No - Immunizations Immunizations are current?: Yes Results - Vitals Vitals: Vital Signs - 24 hr 12/24/22 12/24/22 12/24/22 15:27 15:52 16:00 Temperature 36 C L Heart Rate 79 80 79 Respiratory 18 17 16 Rate Blood Pressure 154/67 H 125/75 O2 Saturation 97 98 12/24/22 12/24/22 12/24/22 16:30 17:00 17:30 Temperature Heart Rate 77 60 74 Respiratory 16 15 15 Rate Blood Pressure 121/95 H 110/61 128/64 O2 Saturation 98 99 98 Oxygen O2 Source Room air PD Medical Decision Making - ED course Complexity details: re-evaluated patient (he was in the ER 2 1/2 hours, and there was the about 1 hour from time of epi at walk in to here. He had been having increasing symptoms for an hour prior to that. So it seems reasonable time interval to say not apparent worsening/resurge. Pt and would like to head home. ), considered differential (angioedema after eating strawberry and grapes. Seems more likely strawberry. However, he is on Losartan, so consider effect shared with that. Has had URI symptoms the past week, so immune system may be overreactive. ), d/w patient Drug Therapy Requiring Monitoring for Toxicity: the patient is on losartan which can associate with angioedema. I would have him hold it until further discussion with PCP. COnsider changing to other med. Avoid strawberries for now as well until allergy tsting for it or just indefinitely. ED course: The patient has had some head cold type symptoms and mild cough for about a week and is improving. He was a teen some fruit and had a strawberry and some grapes and developed swelling of the left side of tongue and throat within a few minutes after that. He does take blood pressure medicine including losartan. He went to the walk-in clinic with the symptoms and was given epinephrine and Benadryl and EMS was called. EMS brought the patient appear and was noting improvement on the route. He still had some mild to moderate swelling on the left side of the tongue. Normal voice and no stridor or trouble breathing on arrival. He was given Decadron IV. Given the some mild local swelling, I did not feel he needed to repeat IM or IV epinephrine but did give a nebulizer with mostly oral effect. He continued to have steady improvement. He is now about 3 hours from the initial epinephrine dose and has just continued improvement and says his tongue now appears normal. He states he does not feel any swelling still. Normal voice and unlabored breathing. At this point he and his would like to go home. I discussed with him the variable observation periods of 2 to 3 hours up to 6 hours. I do feel he is out of the time range for the main epinephrine effect and the resolution of symptoms at this point is good. Shared decision with he and his and myself is we can discharge the patient here fairly soon. I did prescribe a EpiPen that he could use if needed. At dsicharge, was about 5 hours after onset with only downward trend to normal. Does not seem resurgence is likely. 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 We will see swelling around the face and throat like this in reaction to medications like losartan and lisinopril rarely. Commonly this will get triggered by an immune system irritant concurrently such as the recent cold you have had or the strawberries. I would suggest for now blaming the strawberry since it was close in time to when the symptoms started and avoid strawberries. In the future you can get allergy testing to strawberries to see if you are truly still allergic it may be just conditional based on your immune system at the current time. I would also want you to potentially place some of the blame possibly on the losartan and hold the losartan for now for the next couple of weeks. Call and talk with your primary care about it and whether to stay off of it or retry it, or replace with another med. Your blood pressure with undoubtedly be higher without it but is okay as long as not very high. Forms: PCP List Discharge Date/Time: 12/24/22 17:53
[2022-12-24 16:14] VITALS: O2SAT 98
[2022-12-24 17:56] VITALS: BP 128/64
== END 2022-12-24 17:53 | disposition home or self-care (01) ==
LOC: EDUNIT# → ED 15:18
DX: T78.3XXA Angioneurotic edema, initial encounter (principal); T46.5X5A Adverse effect of other antihypertensive drugs, initial encounter; R05.9 Cough, unspecified; J34.89 Other specified disorders of nose and nasal sinuses; I10 Essential (primary) hypertension; Z91.018 Allergy to other foods
CPT/HCPCS: 94640; 96374; 99283

== ENCOUNTER 2023-06-23 12:14 | Outpatient (CLI) | payer MEDICARE ==
--- NOTE | 2023-06-23 13:53 | XRAY Report ---
Chest 2V HISTORY: BRONCHITIS, ACUTE WITH BRONCHOSPASM COMPARISON: 03/26/2020. TECHNIQUE: 2 views of the chest are submitted for interpretation. FINDINGS/IMPRESSION: Left subclavian pacemaker, unchanged. No pleural effusion or pneumothorax. No pulmonary edema or focal consolidation. Normal cardiomediastinal silhouette. Reviewed by: Rianna Ureña MD on 06/23/2023 1:52 PM PDT Approved by: Rianna Ureña MD on 06/23/2023 1:52 PM PDT Station ID: [id number]
[2023-06-23 14:26] LABS: BASOPHILS % (AUTO) 0.7 %; EOSINOPHILS # (AUTO) 1.2 10^3/uL (0.0-0.7); EOSINOPHILS % (AUTO) 19.5 %; HGB - HEMOGLOBIN 13.3 g/dL (14.0-18.0); LYMPHOCYTES # (AUTO) 1.5 10^3/uL (1.5-3.5); LYMPHOCYTES % (AUTO) 25.6 %; MEAN CORPUSCULAR HGB CONC 32.4 g/dL (32.0-36.0); MEAN CORPUSCULAR VOLUME 95.6 fL (80.0-94.0); MEAN PLATELET VOLUME 11.1 fL (7.4-11.4); MONOCYTES # (AUTO) 0.6 10^3/uL (0.0-1.0); MONOCYTES % (AUTO) 9.2 %; NEUTROPHILS # (AUTO) 2.7 10^3/uL (1.5-6.6); NEUTROPHILS % (AUTO) 44.8 %; PLT - PLATELET COUNT 144 10^3/uL (130-450); RED BLOOD COUNT 4.29 10^6/uL (4.70-6.10); RED CELL DISTRIBUTION WIDTH 13.7 % (12.0-15.0)
[2023-06-23 14:33] LABS: RBC MORPHOLOGY (MULTIPLE) 1+ ANISOCYTOSIS (NORMAL); SLIDE REVIEW? Indicated
[2023-06-23 14:55] LABS: ALBUMIN 3.8 g/dL (3.2-5.5); ALBUMIN/GLOBULIN RATIO 1.2 (1.0-2.2); BILIRUBIN,TOTAL 0.7 mg/dL (0.2-1.0); CALCIUM 9.9 mg/dL (8.5-10.3); CREATININE 0.8 mg/dL (0.6-1.3); MAGNESIUM 1.9 mg/dL (1.7-2.3); POTASSIUM 4.2 mmol/L (3.5-4.5); TOTAL PROTEIN 7.1 g/dL (6.4-8.9)
== END 2023-06-23 12:15 | disposition home or self-care (01) ==
LOC: DI.S 12:14
PROVIDERS: ATTEND Emergency Medicine
DX: I48.92 Unspecified atrial flutter (principal); I50.9 Heart failure, unspecified; E83.42 Hypomagnesemia
CPT/HCPCS: 36415; 80053; 83735; 83880; 85025